=== PATIENT | female | born 1945 | race Caucasian/White ===

== ENCOUNTER 2024-11-28 12:18 | Emergency (ER) | payer MEDICARE, SELFPAY ==
--- OUTSIDE RECORDS SUMMARY | 2024-11-28 12:24 | XMS_ITS | Referral Summary ---
Author Organization [facility] Address [address] [place] [id number] Care Team Providers Care Real Estate Loan Officer Name Role Phone Samm Avalos OD Unavailable Caty Wilson Primary Care Provider [phone] Allergies Active Allergy Reactions Criticality Noted Date Comments Penicillins HIVES 11/30/2020 Medications Medication Sig Dispensed Refills Start Date End Date Status losartan (COZAAR) 25 MG tablet Take 25 mg by mouth daily. Active simvastatin (ZOCOR) 20 MG tablet Take 20 mg by mouth nightly. Active Phenazopyrid-Cranbry- C-Probiot (AZO URINARY TRACT SUPPORT PO) Take by mouth daily. Active aspirin 81 MG EC tablet Take 81 mg by mouth daily. 06/23/2020 Active metFORMIN (GLUCOPHAGE) 500 MG tablet Take 1,000 mg by mouth 2 times daily (with meals). Active METOPROLOL-HYDROCHLOR OTHIAZIDE PO Take by mouth daily. Active Multiple Vitamins-Minerals (PreserVision AREDS 2) Cap Take 2 capsules by mouth. Active Cinnamon 500 MG Cap Take 2 capsules twice a day by oral route. Active olopatadine (PATANOL) 0.1 % ophthalmic solution 1 drop daily. Active Active Problems No known active problems Immunizations Name Administration Dates Next Due COVID Unspecified Formulation 05/23/2021, 021,09/08/2020 Zostavax (Zoster Shingles) 09/12/2016 Social History Tobacco Use Types Packs/Day Years Used Date Smoking Tobacco: Never Smokeless Tobacco: Never Alcohol Use Standard Drinks/Week Comments Yes 7 (1 standard drink = 0.6 oz pur e alcohol) 1 drink a day Inadequate Housing Answer Date Recorded Social Determinants: Housing (Overall Score Help er) 0 01/15/2023 Sex and Gender Information Value Date Recorded Sex Assigned at Not on file Gender Identity Not on file Sexual Orientation Not on file Job Start Date Occupation Industry Not on file Not on file Not on file Last Filed Vital Signs Vital Sign Reading Time Taken Comments Blood Pressure 148/70 12/14/2020 10:56 AM CDT Pulse 71 12/14/2020 10:56 AM CDT Temperature 36.7 C (98.1 F) 12/14/2020 10:48 AM CDT Respiratory Rate 16 12/14/2020 10:5 6 AM CDT Oxygen Saturation 98% 12/14/2020 10: 56 AM CDT Inhaled Oxygen Concentration - - Weight 81.5 kg (179 lb 10.8 oz) 021 10:20 AM CDT Height 165.1 cm (5' 5 ) 12/14/2020 10:2 0 AM CDT Body Mass Index 29.9 12/14/2020 10:20 AM CDT Functional Status Functional Status Response Date of Assess ment RETIRED Are you deaf or do y ou have serious difficulty hearing? No 12/14/2020 RETIRED Are you blind or do you have serious difficulty seeing, even when wearing glasses? No 12/14/2020 Plan of Treatment Not on file Medical Devices Implanted Type Area Baggage Agent Supervisor Device Identifier Shelf Expiration Date Model / Serial / Lot Lens Iol Tecnis Protec +22 D C Hpt Bcnvx 1 Pc Ant - [id number] Implanted:Qty: 1 on 12/07/2020 by Emdundo Hylton MD at [facility] Lens Right: Eye [employer] . [id number] 08/07/2024 [id number] / [id number] / Description:Implant package intact prior to opening. Received at ambient temperature. Lens Iol Tecnis Protec +22 D C Hpt Bcnvx 1 Pc Ant - [id number] Implanted:Qty: 1 on 12/14/2020 by Edmundo Hylton MD at [facility] Lens Left: Eye [employer] . [id number] 09/25/2024 [id number] / [id number] / Description:Implant package intact prior to opening. Received at ambient temperature. Procedures Procedure Name Priority Date/Time Associated Diagnosis Comments EYE EXAM DILATED Routine 07/06/2020 from Last 3 Months or Most Recently Relevant to Health Maintenance Results * EYE EXAM DILATED (07/06/2020) Retinopathy Present Yes Outside Provider SCANS from Last 3 Months or Most Recently Relevant to Health Maintenance Care Teams Real Estate Loan Officer Relationship Specialty Start Date End Date Caty Wilson APNP [address] [place] [address] PCP - General Nurse Practitioner 12/05/20 Samm Avalos OD [address] [place] [address] Referring Provider Optometry 07/11/20
--- OUTSIDE RECORDS SUMMARY | 2024-11-28 12:24 | XMS_ITS | Clinical Summary ---
Author Organization [facility] Address [address] [place] [id number] Care Team Providers Care Payroll And Benefits Manager Name Role Phone Samm Avalos OD Unavailable Caty Wilson Primary Care Provider [phone] Allergies Active Allergy Reactions Criticality Noted Date [...] Formulation 05/23/2021, 021,09/08/2020 Zostavax (Zoster Shingles) 09/12/2016 Surgical History Surgery Date Site/Laterality Comments HYSTERECTOMY HYSTEROSCOPY CATARACT EXTRACTION W/ INTRA OCULAR LENS IMPLANT 08/26/2020 - 08/25/2021 Bilateral Medical History Medical History Date Comments Essential (primary) hypertension High cholesterol Urinary tract infection Arthritis Diabetes mellitus (CMD) checks b lood sugars daily Chronic pain Cataract Family History Medical History Relation Comments Cancer Father Heart disease Father Macular degeneration Mother Stroke Mother Relation Status Comments Father Mother Social History Tobacco Use Types Packs/Day Years [...] file Not on file Not on file Obstetrics History Para Term AB IAB SAB Ectopic Molar Multiple Living Live Births 3 2 2 1 1 Date Outcome GA Total Labor Labor/2nd/3rd Weight Sex Type Anes PTL Jacquelin A1 A5 Name Clin Term Term SAB Last Filed Vital Signs Vital Sign Reading [...] Mass Index 29.9 12/14/2020 10:20 AM CDT Plan of Treatment Health Maintenance Due Date Last Done Comments Depression Screening 1957 Diabetes Foot Exam 12/26/1965 DTaP/Tdap/Td Vaccine (1 - Tdap) 12/26/1966 Pneumococcal Vaccine 50+ (1 of 1 - PCV) 12/26/1997 Hepatitis C Screening 12/26/1998 Shingles Vaccine (2 of 3) 11/07/2016 09/12/2016 Diabetes A1C 09/06/2022 03/06/2022 Respiratory Syncytial Virus (RSV) Vaccine 60+ (1 - 1-dose 75+ series) 12/26/2022 GFR 03/06/2023 03/06/2022 Microalbumin Ratio 03/06/2023 03/06/2022 COVID-19 Vaccine ( season) 2024 05/23/2021, 09/29/2020, 09/29/2020, Additional history exists Influenza Vaccine (#1) 2024 Diabetes Eye Exam 05/07/2024 05/07/2023, , 07/06/2020 Medicare Advantage- Medicare Wellness Visit 08/26/2024 Osteoporosis Screening Completed 09/13/2021 Breast Cancer Screening Discontinued 12/13/19, 09/19/2020, 09/01/2019, Additional history exists Cologuard Discontinued 04/24/2022 Colorectal Cancer Screening Discontinued CT Colonography Discontinued Colonoscopy Discontinued Fecal Occult Blood Discontinued HPV Vaccine Aged Out No longer eligi ble based on patient's age to complete this topic Hepatitis A Vaccine Aged Out No longe r eligible based on patient's age to complete this topic Hepatitis B Vaccine (For Physician/APC Discussion) Aged Out No longer elig ible based on patient's age to complete this topic Meningococcal Serogroup B Vaccine Aged Out No longer eligible based on patient's age to complete this topic Meningococcal Vaccine Aged Out No crys alejandro eligible based on patient's age to complete this topic Sigmoidoscopy Discontinued Medical Devices Implanted Type Area Mother Baby Rn Device Identifier Shelf Expiration Date Model / Serial / Lot Lens Iol Tecnis Protec +22 D C Hpt Bcnvx 1 Pc Ant - [id number] Implanted:Qty: 1 on 12/07/2020 by Edmundo Hylton MD at [facility] Lens Right: Eye [employer] . [id number] 08/07/2024 [id number] / [id number] / Description:Implant package intact prior to opening. Received at ambient temperature. Lens Iol Tecnis Protec +22 D C Hpt Bcnvx 1 Pc Ant - [id number] Implanted:Qty: 1 on 12/14/2020 by Edmundo Hylton MD at [facility] Lens Left: Eye [employer] . [id number] 09/25/2024 [id number] / [id number] / Description:Implant package intact prior to opening. Received at ambient temperature. Procedures Procedure Name Priority Date/Time Associated Diagnosis Comments EYE EXAM DILATED Routine 07/06/2020 from Last 3 Months or Most Recently Relevant to Health Maintenance Results * EYE EXAM DILATED (07/06/2020) Retinopathy Present Yes Outside Provider SCANS from Last 3 Months or Most Recently Relevant to Health Maintenance Care Teams Payroll And Benefits Manager Relationship Specialty Start Date End Date Caty Wilson APNP [address] [place] [place] [id number] PCP - General Nurse Practitioner 12/05/20 Samm Avalos OD [address] [place] [address] Referring Provider Optometry 07/11/20
--- OUTSIDE RECORDS SUMMARY | 2024-11-28 12:24 | XMS_ITS | Data Portability ---
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 Following this, she has a high degree AV block and Afib. Angela was found to have bilateral PEs and was started on Eliquis. She now has a PPM in place. She is 99% paced. Angela was having swelling in her LEs that is improved on her new medications. She was seen by Dr. Rojo to discuss right lead revision of her PPM due to severe tricuspid regurgitation. This is scheduled for next week on Saturday. Dr. Rojo also recommended once lead revision is complete, to consider DCCV for 100% Afib burden. Angela is euvolemic on exam despite her recent BNP being elevated. She will have a new lab drawn today. She will switch her metolazone to prn for weight gain/edema. I anticipate that her medication dosages may change depending on the results of her lead revision next week. Angela is overall feeling much better and able to be more active. They plan to head to [place] for a few months following the lead revision. She will follow-up when they get back. TTE (04/09/24) 1) Paradoxical septal motion. LVEF 45-50%. 2) Pacing lead in the Right Heart cavities. 3) Atria are free of echodense mass. 4) Normal Aortic and pulmonic Valves. 5) Moderate Mitral Regurgitation. 6) SEVERE TRICUSPID REGURGITATION. 7) Normal estimated RVSP/PASP. 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 Following this, she has a high degree AV block and Afib. Anegla was found to have bilateral PEs and was started on Eliquis. She had a PPM in place that caused severe tricuspid regurgitation. Her PPM was revised by Dr. Rojo on 08/05/24. Since then, she has been feeling much better. She lost all of the water weight, down 45 pounds, and she is able to do her normal activity again. She is in atrial fibrillation 100% of the time and there is discussion by Dr. Rojo of whether to perform a DCCV to attempt to get her out of Afib. She is feeling good right now and is tolerating her medications. Angela is euvolemic on exam and her BP is at goal. She is doing well on her current medications and was encouraged to increase her walking. We discussed a possible DCCV in the future. As of now, she is feeling good and is rate controlled. She will maintain her current medications and meet with Dr. Recio in November at her next PPM check to see if a DCCV should be performed. Should she have any lightheadedness or dizziness, we may need to adjust her Bumex dosing. She was advised to watch her weight daily and follow-up sooner if needed. TTE (04/09/24) 1) Paradoxical septal motion. LVEF 45-50%. 2) Pacing lead in the Right Heart cavities. 3) Atria are free of echodense mass. 4) Normal Aortic and pulmonic Valves. 5) Moderate Mitral Regurgitation. 6) SEVERE TRICUSPID REGURGITATION. 7) Normal estimated RVSP/PASP. 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 mitral valve A1c 8.3 (05/29/24) Lipid panel (05/29/24) Total 124, TG 129, HDL 64, LDL 34 [email or web address] Not available 08/25/2024 11:57:06 Plan of Treatment Reminders Order Date Submit Date Provider Last Modified By Organization Details Last Modified Time Details Appointments IN PERSON DEVICE 2024 10:15A M Device Visit Not available Not available Not available FOLLOW UP 30 2024 10:30A M Triston Recio MD Not available Not available Not available MEDICARE ANNUAL WELLNESS 2024 10:30A M David Jaimes MD Not available Not available Not available Lab glycohem oglobin, total, blood 2024 025 [facility], [address], [place], [address], 09/02/2024 12:28:07 CMP, serum or plasma 2024 025 [facility], [address], [place], [address], 09/02/2024 12:28:07 BNP (B-type natriure tic peptide) , serum or plasma 2023 024 [facility], [address], [place], [address], 07/28/2024 12:49:33 Referral dermatol ogist referral 2024 025 [facility] [place], [address], [place], [address], 09/07/2024 21:58:58 Procedures None recorded . Surgeries None recorded . Imaging None recorded . Medication Orders glipizid e 5 mg tablet 2024 025 [facility], [address], [address], [place], [place], [phone], 09/02/2024 12:28:09 Patient TargetsNo targets recorded. Patient Instructions Encounter Date Encounter Id Patient Instructions Last Modified By Organization Details Last Modified Time 09/02/2024 [id number] diabetic eye exam* - please send most up to date DM eye exam [email or web address] Not available 11/02/2024 08:33:13 Reason for Referral Asparagus Cutter Referral for A ctinic keratosis Lesion on scalp concerning for actinic keratosis. Referring Physician: David Jaimes, Family Medicine, Encounter Date: 09/02/2024 Results Created Date Observation Date Name Description Value Unit Range Abnormal Flag Note LastModifiedBy Organization Detail LastModifiedTime 07/21/20 24 07/21/2024 COMPR EHENS ANDRIY METAB OLIC PANEL glucose 280 mg/dL 74-106 high The Ameri can [employer] mad[employer] iatio n recom mends a refer ence range of 70-10 0 mg/dL for fasti ng blood gluco se. Not Available [facility] [address], [place], [address], 07/21/2024 11:35:02 07/21/20 24 07/21/2024 COMPR EHENS ANDRIY METAB OLIC PANEL BUN 27 mg/dL 7-17 high Not Available [facility] [address], [place], [address], 07/21/2024 11:35:02 07/21/20 24 07/21/2024 COMPR EHENS ANDRIY METAB OLIC PANEL creatinine 1.30 mg/dL 0.52-1 .04 high Not Available [facility] [address], [place], [address], 07/21/2024 11:35:02 07/21/20 24 07/21/2024 COMPR EHENS ANDRIY METAB OLIC PANEL estimated GFR 40 mL/mi n/1.7 3_m2 61-166 low Estim ated GFR is calcu lated accor ding to NKDEP recom menda tions using the MDRD equat ion. Resul ts are less accur ate for perso ns with dilip l or mildl y impai red kidne y funct ion (resu lts > 60 mL/mi n/1.7 3 m2). Not Available [facility] [address], [place], [address], 07/21/2024 11:35:02 07/21/20 24 07/21/2024 COMPR EHENS ANDRIY METAB OLIC PANEL BUN / creatinine ratio 21 7-25 normal Not Available [facility] [address], [place], [address], 07/21/2024 11:35:02 07/21/20 24 07/21/2024 COMPR EHENS ANDRIY METAB OLIC PANEL total bilirubin 0.8 mg/dL 0.2-1. 3 normal Not Available [facility] [address], [place], [address], 07/21/2024 11:35:02 07/21/20 24 07/21/2024 COMPR EHENS ANDRIY METAB OLIC PANEL total protein 7.5 g/dL 6.1-8. 5 normal Not Available [facility] [address], [place], [address], 07/21/2024 11:35:02 07/21/20 24 07/21/2024 COMPR EHENS ANDRIY METAB OLIC PANEL albumin 4.5 g/dL 3.5-5. 0 normal Not Available [facility] [address], [place], [address], 07/21/2024 11:35:02 07/21/20 24 07/21/2024 COMPR EHENS ANDRIY METAB OLIC PANEL Na 136 mmol/ L 137-14 5 low Not Available [facility] [address] [place], [address], 07/21/2024 11:35:02 07/21/20 24 07/21/2024 COMPR EHENS ANDRIY METAB OLIC PANEL K 3.9 mmol/ L 3.5-5. 1 normal Not Available [facility] [address] [place], [address], 07/21/2024 11:35:02 07/21/2007/21/2024 COMPR EHENS ANDRIY METAB OLIC PANEL chloride 96 mmol/ L 98-107 low Not Available [facility] [address] [place], [address], 07/21/2024 11:35:02 07/21/20 24 07/21/2024 COMPR EHENS ANDRIY METAB OLIC PANEL CO2 31 mmol/ L 22-30 high Not Available [facility] [address] [place], [address], 07/21/2024 11:35:02 07/21/20 24 07/21/2024 COMPR EHENS ANDRIY METAB OLIC PANEL anion gap 12.9 mmol/ L 2.0-16 .0 normal Not Available [facility] [address] [place], [address], 07/21/2024 11:35:02 07/21/20 24 07/21/2024 COMPR EHENS ANDRIY METAB OLIC PANEL calcium 9.8 mg/dL 8.4-10 .2 normal Not Available [facility] [address] [place], [address], 07/21/2024 11:35:02 07/21/20 24 07/21/2024 COMPR EHENS ANDRIY METAB OLIC PANEL ALT 17 U/L 4-35 normal Ortho Clini luz Diagn ostic s has impro zulema the low end sensi tivit y and preci raissa in ALT's . Updat ed Refer ence Range s begin ing 09/29 Male 4-50 U/L Femal e 4-35 U/L Not Available [facility] [address], [place], [address], 07/21/2024 11:35:02 07/21/20 24 07/21/2024 COMPR EHENS ANDRIY METAB OLIC PANEL AST 25 U/L 14-41 normal Not Available [facility] [address], [place], [address], 07/21/2024 11:35:02 07/21/20 24 07/21/2024 COMPR EHENS ANDRIY METAB OLIC PANEL alkaline phosphatase 60 U/L 38-165 normal Not Available [facility] [address], [place], [address], 07/21/2024 11:35:02 07/28/20 24 07/28/2024 B-TYP E NATRI URETI C PEPTI DE nt pro-BNP II 6260.0 pg/mL 0.0-29 6.0 high On 2022 the labor atory will be eduardo ing testi ng reage nts for ntBNP . The new metho dolog y has been valid ated to the ICON age-d epend ent cutof fs for impro zulema speci ficit y and elimi nates bioti n inter feren ce. Emerg ency Depar tment Setti ngs VITRO S NT-pr oBNP II Test Resul ts (pg/m L) Age Group (Year s) Inter preta tion of Resul ts <300 All Negat andriy: Heart Failu re Unlik deana 300 to 450 22-49 [place]: Resul t Indet ermin ate - Consi rivka other cause s of NT-pr oBNP eleva tion >299 to <900 50-74 >299 to <1800 >74 >449 22-49 Posit andriy:H eart Failu re Likel y >899 50-74 >1799 >75 Outpa tient Setti ngs VITRO S NT-pr oBNP II Test Resul ts (pg/m L) Age Group Inter preta tion of Resul ts <125 All Negat andriy: Heart Failu re Unlik deana >124 All Consi rivka Heart Failu re as well as other cause s of NT-pr oBNP eleva tion. Not Available [facility] [address], [place], [address], 07/28/2024 12:49:33 08/31/1908/31/2024 HEMOG LOBIN A1C hemoglobin A1C 7.7 % 4.7-6. 4 high Not Available [facility] [address], [place], [address], 08/31/2024 09:54:26 08/31/19 25 08/31/2024 HEMOG LOBIN A1C estimated average glucose 174 mg/dL 74-106 high The Ameri can [employer]abe mad[employer] iatio n 2009 Stand ards recom mends repor ting the Estim ated [place] ge Gluco se in conju nctio n with a Hemog lobin A1c. The Ortho Clini luz Diagn ostic Hemog lobin A1c metho d is an immun oturb idime tric metho d, certi fied by the NGSP and stand ardiz ed to the DCCT refer ence assay . Not Available [facility] [address], [place], [address], 08/31/2024 09:54:26 08/31/19 25 08/31/2024 MICRO ALBUM IN, URINE microalbumin 5.9 mg/dL 0.0-29 .0 normal Not Available [facility] [address], [place], [address], 08/31/2024 10:17:58 08/31/19 25 08/31/2024 MICRO ALBUM IN, URINE microalbumin / creatinine ratio 51 mg/g 0-29 high Micro album in Creat inine Ratio Micro album inuri a 30 - 300 mg/g Clini luz album inuri a >300 mg/g Not Available [facility] [address], [place], [address], 08/31/2024 10:17:58 08/31/19 25 08/31/2024 MICRO ALBUM IN, URINE creatinine, urine 114.6 mg/dL Not Available [facility] [address], [place], [address], 08/31/2024 10:17:58 Result Notes None recorded. Problems Name Problem SNOMED Code Status Onset Date Resolution Date Notes Provider Name and Address Organization Details Recorded Time Essential hypertens ion 95831258 Active ANASTACIA Jara, RN [address], [place], [address], [facility] 3 12:50:41 Hyperchol esterolem ia 82373547 Active ANASTACIA Jara, RN [address], [place], [address], [facility] 3 12:51:01 Type 2 diabetes mellitus 94798300 Active ANASTACIA Jara, RN [address], [place], [address], [facility] 3 12:51:22 Chronic back pain 527223865 Active ANASTACIA Jara, RN [address], [place], [address], [facility] 3 11:16:26 Hyperlipi demia 52333361 Active 2023 Parveen Fam DO [address], [place], [address], [facility] 4 14:44:39 Pigmented skin lesion of uncertain nature 684513842 Active 2023 Christopher Rogalla, DO [address], [place], [address], [facility] 14:46:10 Long-term current use of anticoagu lant 744587157 Active 2023 Parveen Fam, DO [address], [place], [address], [facility] 22:32:46 History of atrial myxoma 767470670864 104 Active 2023 Lucianopreethi Fam, DO [address], [place], [address], [facility] 22:33:43 Atrial fibrillat ion 85670703 Active 2023 Parveen Allenwandytonio, DO [address], [place], [address], [facility] 22:33:45 Complete atriovent ricular block 03078255 Active 2023 Parveen Sarwat, DO [address], [place], [address], [facility] 22:33:46 Cardiac pacemaker in situ 334406728 Active 2023 Parveen Allenwandytonio, DO [address], [place], [address], [facility] 22:33:47 Acute pulmonary embolism 750331155 Active 2023 Parveen Sarwat, DO [address], [place], [address], [facility] 22:33:49 Deep venous thrombosi s of lower extremity 798444609 Active 2023 Parveen Schwartztonio, DO [address], [place], [address], [facility] 22:33:50 Atrial myxoma 767036044 Active 2023 STEFFI Dorsey [address], [place], [address], [facility] 4 14:04:42 Type 2 diabetes mellitus without complicat ion 675465525 Active 2023 STEFFI Dorsey [address], [place], [address], [facility] 4 14:05:21 Dyspnea on exertion 55993044 Active 2023 STEFFI Dorsey [address], [place], [address], [facility] 4 15:19:43 Edema of lower extremity 024851213 Active 2023 STEFFI Dorsey [address], [place], [address], [facility] 4 15:29:49 Chronic diastolic heart failure 283116487 Active 2023 David Jaimes MD [address], [place], [address], [facility] 4 11:58:29 Acute on chronic diastolic heart failure 282031498 Active 2023 David Jaimes MD [address], [place], [address], [facility] 4 15:26:58 Ascites 819015036 Active 2023 STEFFI Dorsey [address], [place], [address], [facility] 4 13:50:32 Nonischem ic congestiv e cardiomyo nayeli 758735138011 Active 2023 STEFFI Dorsey [address], [place], [address], [facility] 4 15:58:04 Chronic kidney disease stage 3B 186147150 Active 2023 David Jaimes MD [address], [place], [address], [facility] 4 11:58:21 Dysuria 88632376 Active 2023 David Jaimes MD [address], [place], [address], [facility] 4 14:58:55 Acute cystitis 22083956 Active 2023 David Jaimes MD [address], [place], [address], [facility] 00:48:26 Actinic keratosis 545469999 Active 2024 David Jaimes MD [address], [place], [address], [facility] 5 12:25:18 Notes:Some problems listed i n Document: #[id number] could not be added to this patient's chart. Please review this document and add these problems to the patient's chart manually as needed. Problem Notes None recorded. Procedures Surgical History Date Name Laterality Status Provider Name and Address Organization Details Recorded Time 08/13/20 Pacemaker Check completed [facility] 08/14/2024 09:46:18 08/05/20 24 replacement of electronic heart device, pulse generator completed ROSELIA DAVIDSON [facility] 08/25/2024 11:03:01 08/04/20 24 Pacemaker Check completed [facility] 08/04/2024 12:05:06 05/04/20 24 Most Recent Mammogram completed [place] Moore [facility] 06/01/2024 11:38:54 04/28/20 24 Pacemaker Check completed [facility] 04/28/2024 15:29:32 01/16/20 24 Pacemaker Check completed [facility] 01/16/2024 15:24:33 10/23/19 24 cardiac pacemaker procedure completed Vivian [facility] 01/13/2024 17:11:41 10/17/19 24 excision of left atrial myxoma completed Vivian [facility] 01/13/2024 17:03:48 Total hysterectomy completed [facility] 09/05/2022 10:05:29 hysteroscopy completed [facility] 09/05/2022 10:06:33 extraction of cataract completed [facility] 09/05/2022 10:06:52 Imaging Results None recorded. Procedure Notes None recorded. Medical Equipment Implant MILIND Issuing Agency Serial Number Lot Number Status Provider Name and Address Organization Details Recorded Time Medtronic Dual Chamber Pacemaker FDA Y [facility] 01/13/2024 17:12:10 Allergies Allergen ID Allergen Name Allergen Category Reaction Reaction Severity Criticality Documentation Date Start Date Code Code System Note Provider Name and Address Organization Details Recorded Time 394859 Product containin g penicilli n (product) medicatio n hives moderate low 09/05/20222022 58353 8001 SNOMED [facility] 4 11:30:14 334849 adhesive tape environme nt,medica tion rash moderate Not available 09/02/2024 05952 UNK [place] Fink her null, [facility] 5 12:05:57 Medications Name Sig Start Date Stop Date Status Note LastModified by Organization Details LastModified Time multivita min tablet Take 2 tablets every day by oral route. active Not Available Not Available No t Available metolazon e 2.5 mg tablet TAKE ONE TABLET BY MOUTH ONCE WEEKLY 08/25 completed Not Available Not Available Not Available metformin 500 mg tablet TAKE 2 TABLETS BY MOUTH TWICE DAILY 2023 active Not Available Not Available Not Avai lable bumetanid e 2 mg tablet Take 1 tablet twice a day by oral route. active Not Available Not Available No t Available metoprolo l succinate ER 50 mg tablet,ex tended release 24 hr Take 1 tablet every day by oral route. 03/07 completed Not Available Not Available Not Available amlodipin e 5 mg tablet Take 1 tablet every day by oral route. 03/10 completed Not Available Not Available Not Available metoprolo l tartrate 50 mg-hydroc hlorothia zide 25 mg tablet Take 1 tablet every day by oral route. 01/08 completed Not Available Not Available Not Available Macrobid 100 mg capsule Take 1 capsule every 12 hours by oral route for 5 days. 06/25 completed Changed med to Cipro Not Available Not Available Not Available simvastat in 20 mg tablet TAKE 1 TABLET BY MOUTH AT BEDTIME 2023 active Not Available Not Available Not Avai lable Cipro 500 mg tablet Take 1 tablet every 12 hours by oral route for 5 days. 07/28 completed Not Available Not Available Not Available nitrofura ntoin macrocrys ziyad 100 mg capsule Take 1 capsule twice a day by oral route for 7 days. 04/01 completed Not Available Not Available Not Available losartan 25 mg tablet Take 1 tablet every day by oral route. 04/13 completed Not Available Not Available Not Available bumetanid e 1 mg tablet Take 1 tablet every day by oral route for 30 days. 04/13 completed Not Available Not Available Not Available hydrochlo rothiazid e 25 mg tablet Take 1 tablet every day by oral route. 03/07 completed Not Available Not Available Not Available digoxin 125 mcg (0.125 mg) tablet 1 po q day 2024 active Not Available Not Available Not Avai lable furosemid e 20 mg tablet Take 2 tablets every day by oral route in the morning for 90 days. 03/12 completed Not Available Not Available Not Available bumetanid e 0.25 mg/mL injection solution Take 2 mg by injectio n route. 04/13 completed Not Available Not Available Not Available ondansetr on 4 mg disintegr ating tablet Place 2 tablets on the tongue daily as needed for nausea 08/25 completed Not Available Not Available Not Available glipizide 5 mg tablet Take 1 tablet twice a day by oral route for 90 days. 2024 active Not Available Not Available Not Avai lable ezetimibe 10 mg tablet Take 1 tablet every day by oral route. 2023 active Not Available Not Available Not Avai lable Cinnamon 500 mg capsule Take 2 capsules twice a day by oral route. 01/08 completed Not Available Not Available Not Available Vitamin D3 2000 IU 07/28 completed Not Available Not Available Not Available multivita min one daily active Not Available Not Available No t Available PreserVis ion AREDS Takes 1 capsule by mouth twice daily. active Not Available Not Available No t Available nebivolol 10 mg tablet Take 1 tablet every day by oral route. 2023 active Not Available Not Available Not Avai lable Vitamin D3 50 mcg (2,000 unit) capsule Take 1 capsule every day by oral route. active Not Available Not Available No t Available Eliquis 5 mg tablet 1 tab bid 2023 active Not Available Not Available Not Avai lable Farxiga 10 mg tablet Take 1 tablet every day by oral route. 01/13 completed Not Available Not Available Not Available Entresto 24 mg-26 mg tablet Take 0.5 tablet twice a day by oral route 2023 active Not Available Not Available Not Avai lable aspirin 81 mg capsule Take 1 capsule every day by oral route. 01/08 completed Not Available Not Available Not Available Vitals Date Recorded Body height Body mass index (BMI) Body weight Respiratory rate Pain severity - 0-10 verbal numeric rating [Score] - Reported Heart rate Systolic blood pressure Diastolic blood pressure Provider Name and Address Organization Details Last Updated DateTime 4 165.1 cm 21.8 kg/m2 80702.8 8 g 16 /min 0 64 /min 110 mm[Hg] 66 mm[Hg] ROSELIA DAVIDSON [facility] 4 11:33:24 Date Recorded Body height Body mass index (BMI) Body weight Respiratory rate Pain severity - 0-10 verbal numeric rating [Score] - Reported Heart rate Systolic blood pressure Diastolic blood pressure Provider Name and Address Organization Details Last Updated DateTime 4 165.1 cm 21.7 kg/m2 60358.1 6 g 16 /min 0 64 /min 112 mm[Hg] 58 mm[Hg] ROSELIA SANCHEZLUDWIN [facility] 4 11:04:34 Date Recorded Body height Body mass index (BMI) Body weight Respiratory rate Body temperature Heart rate Systolic blood pressure Diastolic blood pressure Provider Name and Address Organization Details Last Updated DateTime 5 165.1 cm 21.5 kg/m2 66465.2 2 g 16 /min 97.6 [degF] 71 /min 110 mm[Hg] 60 mm[Hg] [place] Pottschana her [facility] 5 12:03:38 Social History Question Answer Notes LastModified by Organizat ion Details LastModified Time Tobacco Smoking Status Never Smoker Areli Hernan blum, [facility] 09/05/2022 10:07:52 Do You Have An Advance Directive? Yes [email or web address] Information not available 09/18/2022 Is Your Home Air Conditioned? Yes Information not available 09/05/2022 What Is Your Level Of Alcohol Consumption? None [email or web address] Information not available 04/13/2024 Is Blood Transfusion Acceptable In An Emergency? Yes [email or web address] Information not available 09/18/2022 What Is Your Level Of Caffeine Consumption? Occasional [email or web address] Information not available 04/13/2024 Are You A Caregiver? No Information not available 09/05/2022 What Is Your Code Status? Full Code [email or web address] Information not available 09/18/2022 Are You Currently Employed? No [email or web address] Information not available 09/18/2022 What Is The Highest Grade Or Level Of School You Have Completed Or The Highest Degree You Have Received? [id number] [email or web address] Information not available 09/18/2022 Have There Been Any Changes To Your Family Or Social Situation? No Information not available 04/01/2024 Where Do You Live? [email or web address] Information not available 09/05/2022 PCMH Education Provided? Yes Information not available 09/05/2022 PCMH Brochure Provided? Yes [email or web address] Information not available 01/09/2024 Patient Seen Anywhere Outside Of Office? Bellin Device Check/ PPM [email or web address] Information not available 08/25/2024 History Of Falling No Information not available 09/05/2022 Secondary Diagnosis No Information not available 09/05/2022 Intravenous Therapy/Saline Lock No Information not available 09/05/2022 Mental Status Oriented To Own Ability Information not available 09/05/2022 Over The Last 2 Weeks, How Often Have You Had Little Interest Or Pleasure Doing Things? 0 - Not At All Information not available 09/05/2022 Over The Last 2 Weeks, How Often Have You Brielle Down, Depressed Or Hopeless? 0 - Not At All Information not available 09/05/2022 Ambulatory Aid None Informat ion not available 09/05/2022 Gait Normal [email or web address] Information not available 09/05/2022 Did You Experience A Decreased Appetite Over The Last Month? Yes Makes Herself Eat Information not available 06/01/2024 Did You Use Supplemental Drinks Or Tube Feeding Over The Last Month? No Information not available 09/05/2022 Did You Lose Weight Unintentionally ? No Information not available 09/05/[address] [facility] Brochure Was Provided 04/01/2024 Information not available 04/01/2024 Do You Have A Medical Power Of Filterer? Yes [email or web address] Information not available 09/18/2022 What Was The Date Of Your Most Recent Tobacco Screening? 09/02/2024 Information not available 09/02/2024 Do You Have An Out Of Hospital DNR? No [email or web address] Information not available 09/18/2022 Do You Have A Patient Advocate? No Information not available 09/18/2022 Have You Ever Been Counseled For Unhealthy Alcohol Use? No [email or web address] Information not available 09/18/2022 Do You Have Any Pets? Yes 1 Dog Information not available 09/05/2022 What Is Your Relationship Status? Information not available 09/05/2022 Do You Have Smoke And Carbon Monoxide Detectors In Your Home? Yes Information not available 09/05/2022 Are You Passively Exposed To Smoke? No [email or web address] Information not available 04/13/2024 Are There Any Smokers In Your House? No Information not available 09/05/2022 Do You Use Any Illicit Or Recreational Drugs? No Information not available 09/05/2022 Has Tobacco Cessation Counseling Been Provided? No Information not available 09/25/2023 Have You Recently Traveled Abroad? No [email or web address] Information not available 04/03/2024 Do You Have Any Dietary Restrictions? No Information not available 09/18/2022 Do You Or Have You Ever Used Any Other Forms Of Tobacco Or Nicotine? No Information not available 09/05/2022 Sex: Female Functional Status Question Answer Note LastModified by Organization D etails LastModified Time What is your exercise level? None [email or web address] Information not available 09/18/2022 Mental Status None recorded. Family History Relationship Description Onset Age of this Age Resolved Age Notes LastModified by Organization Details LastModified Time Father Malignant neoplasm of urinary bladder [email or web address] Not available 06/2023 10:05:57 Father Malignant tumor of lung [email or web address] Not available 06/2023 10:06:06 Mother Family history of breast cancer [email or web address] Not available 06/2023 10:06:13 Medical History Condition Response Coronary Artery Disease N Atrial Fibrillation N Hospital Admission Other Than Y Lung Disease N Depression N Kidney Disease/UTI N Arthritis Y High Cholesterol Y Anxiety N Acid Reflux Y Nicotine Dependence N Kidney or Bladder Problems N Diabetes Y Hyperlipidemia Y Operations/Hospitalizations Y Hypertension Y Osteoporosis N Gynecological History Statement/Question Response Current Control Method Menopause Most Recent Mammogram 05/04/2024 Obstetrics History GPAL:G 3 P 2 0 1 2 Type Value Full Term 2 Spontaneous 1 Living 2 Total 3 Immunizations Vaccine Type Date Status Note Provider Nam e and Address Organization Details Recorded Time zoster live 09/12/2016 completed Areli Becerra [facility] 09/04/2022 14:49:56 SARS-COV-2 (COVID-19) vaccine, UNSPECIFIED 09/08/2020 completed Areli Becerra kulwant, [facility] 09/04/2022 14:50:10 SARS-COV-2 (COVID-19) vaccine, UNSPECIFIED 09/29/2020 completed Areli blum, [facility] 09/04/2022 14:50:21 SARS-COV-2 (COVID-19) vaccine, UNSPECIFIED 05/23/2021 completed Areli Becerra kulwant, [facility] 09/04/2022 14:50:30 Past Encounters Encounter ID Performer Location Encounter Start Date Encounter Closed Date Diagnosis/Indication Diagnosis SNOMED-CT Code Diagnosis ICD10 Code Diagnosis Note [id number] Maeve gottleib MD [facility] [address] [place] [address] 09/05/2022 09:52:14 09/05/2022 11:41:37 Type 2 diabetes mellitus without complication 520020608 E11.9 Continue medication s Essential hypertension 77582853 I10 Continue medication s Hyperlipidemia 82403517 E78.5 Continue medication s Influenza vaccination declined 949727418 Z28.21 Screening mammography of bilateral breasts 7420446443 71560 Z12.31 Due 11/2022 [id number] Maeve gottlieb MD [facility], Primary Care [address] [place] [address] 09/18/2022 10:54:19 09/18/2022 14:05:34 Essential hypertension 23480994 I10 takes losartan 25 mg daily and metoprolol 50 mg daily Hypercholesterolemia 136 28270 E78.00 lipid panel done 09/12/22, high triglyceri lópez and HDL; takes simvastati n daily Type 2 horacio betes mellitus 33025822 E11.9 on Metformin 500 mg, 2 tabs twice daily; A1c drawn 09/12/22 at 7.7 with estimated average glucose of 174 Adult heal th examination 059163562 Z00.00 Medicare annual wellness completed today Chronic back pain 191076 002 G89.29 chronic problem, history of injury many years ago, managed with chiropract ic manipulati on Discussion about advance care planning declined 887833329 Z53.20 already has these on file with the hospital system Influenza vaccination declined 738524147 Z28.21 Pneumococc al vaccination declined 203290031 Z28.21 [id number] Maeve gottlieb MD [facility], [facility] [address] [place] [address] 03/07/2023 10:24:43 03/07/2023 11:39:04 Type 2 diabetes mellitus without complication 670908568 E11.9 Continue metformin Hyperlipidemia 08201792 E78.5 Continue simvastati n Essential hypertension 14171321 I10 Continue losartan 25 mg daily and metoprolol 50/HCTZ 25 mg daily [id number] Richar Fam DO [facility], Primary Care [address] [place] [address] 09/10/2023 09:22:59 09/10/2023 10:21:32 Type 2 diabetes mellitus 43277008 E11.65 Chronic problem, not controlled . Hemoglobin A1c exceeding 7%.Plan: Continue metformin 500 mg 2 tablets twice a day Start Farxiga 10 mg once a day Hyperlipidemia 61287551 E78.5 Chronic problem, well-contr olled. Last previous lipid check revealed LDL below 90. This is for secondary prevention in light of type 2 diabetes mellitus with no history of heart attack or stroke.Paras n: Continue simvastati n 25 mg once a day at bedtime Essential hypertension 52608024 I10 Chronic problem, well-contr olled.Plan : Continue losartan 25 mg once a day Continue metoprolol : Hydrochlor othiazide 50: 25 mg once a day Type 2 horacio betes mellitus without complication 342949925 E11.9 Refer to type 2 diabetes mellitus above. Pigmented skin lesion of uncertain nature 937896331 L81.9 Chronic problem, noted on patient's right ureter. Patient states that she has a growth that itches and then falls off. She does have irritation to the right ear as well as some adhesion of the structure of her right ear. She is thought to have potentiall y seborrheic keratosis or actinic keratosis keratosis. Informed patient that she would be best served consulting with a dermatolog ist given the poor blood flow of the ear. She is not thought to be a candidate for topical treatments . She may need a shave biopsy. She declines dermatolog y referral today, stating that she will be in [place] for the winter. When she returns in the spring she would like to undergo an evaluation by dermatolog y here in [place]. 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 Atrial fibrillation 4943 6004 I48.91 Chronic problem, stable.See cardiac pacemaker in situ. 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 Cardiac pa cemaker in situ 177319209 Z95.0 Chronic problem, placed 10/23/2023. Acute pulm onary embolism 735102252 I26.99 See long-term use of anticoagul ant. Deep venou s thrombosis of lower extremity 617286532 I82.409 See long-term use of anticoagul ant. Long-term current use of anticoagulant 353742162 Z79.01 Chronic use of Eliquis for DVT. Not previously on anticoagul ation likely due to pacemaker placement. Considered provoked.C ardiology at outside hospital recommende d 6 months DOAC use.- This would conclude by the end of May4Patiman giron says she was told for life.Defer to cardiology . Essential hypertension 79757780 I10 Chronic problem, well-contr olled. Plan: Continue losartan 25 mg once a day Continue metoprolol : Hydrochlor othiazide 50: 25 mg once a day Type 2 horacio betes mellitus 78790231 E11.65 Chronic problem, not controlled . Hemoglobin A1c exceeding 7% 01/08/2024. Plan: Continue metformin 500 mg 2 tablets twice a day Start Farxiga 10 mg once a day Hyperlipidemia 96404476 E78.5 Chronic problem, well-contr olled. Last previous lipid check revealed LDL below 90. This is for secondary prevention in light of type 2 diabetes mellitus with no history of heart attack or stroke. Plan: Continue simvastati n 25 mg once a day at bedtime [id number] STEFFI Hylton [facility], [facility] [address] [place] [address] 01/14/2024 14:21:20 01/14/2024 15:53:29 Atrial fibrillation 58756561 I48.91 99% burdenEliq uis started Atrial myxoma 446088013 D15.1 Removal surgery 10/24/23 Essential hypertension 85251974 I10 Goal 130/80 or less Type 2 horacio betes mellitus without complication 199120835 E11.9 Start WotkaF7q 7.1Goal A1c 6.0 or less Hyperlipidemia 68659076 E78.5 Goal TG<150Goal HDL>40Goal LDL<100Sta rt ZetiaConti nue statin Complete atrioventricular block 47738156 I44.[address] Cardiac pa cemaker in situ 720490275 Z95.0 Checked in clinic today and set at 70 bpm99% paced Dyspnea on exertion 6084 5006 R06.09 Increase Lasix dosingLabs ordered Edema of l ower extremity 246201716 R60.0 Increase Lasix dosing [id number] Triston Recio MD [facility], [facility] [address] [place] [address] 01/16/2024 14:08:13 01/17/2024 15:44:31 [id number] David Jaimes MD [facility], [facility] [address] [facility] [address] [place] [address] 04/01/2024 12:21:09 04/01/2024 14:09:29 Edema of lower extremity 352127540 R60.0 Screening mammography of bilateral breasts 6032419487 37732 Z12.31 Due for screening; ordered. Acute on c hronic diastolic heart failure 330387175 I50.33 Patient with continued volume overload. Worsening with decrease of bumex from 2 mg to 1 mg. Weight is slowly increasing along with worsening lower extremity swelling. Mild crackles noted in RLL on lung exam. Will increase Bumex from 1 mg to 2 mg until seen by cardiology on 04/03. Advised to start wearing compressio n stockings; donning device discussed. Limit salt intake. continue to monitor weights and maintain log. [id number] STEFFI Hylton [facility] [address] [place] [address] 04/03/2024 13:55:58 04/03/2024 15:16:17 Atrial fibrillation 27115394 I48.91 99% burdenEliq uis started Atrial myxoma 582919104 D15.1 Removal surgery 10/24/23Wor sening edema Essential hypertension 98037427 I10 Goal 130/80 or less Type 2 horacio betes mellitus without complication 801998886 E11.9 Continue CvuxkG6y 7.1Goal A1c 6.0 or less Hyperlipidemia 37323459 E78.5 Goal TG<150Goal HDL>40Goal LDL<100Con tinue statin and Zetia Complete atrioventricular block 82406329 I44.[address] Cardiac pa cemaker in situ 600450782 Z95.0 Checked in clinic today and set at 70 bpm99% paced Dyspnea on exertion 6084 5006 R06.09 Increased Bumex dosingLabs orderedIV Bumex in clinic todayCMP done 03/30 Edema of l ower extremity 339744282 R60.0 Increase Bumex dosing [id number] STEFFI Hylton [facility] [address] [place] [address] 04/13/2024 15:27:14 04/13/2024 16:46:39 Atrial fibrillation 14684487 I48.91 99% burdenEliq uis therapy Complete atrioventricular block 26203354 I44.[address] may require revision of PPM to 2 leads, EP referralPP M setting changed from [address] to [address] Recio Atrial myxoma 525669668 D15.1 Removal surgery 10/24/23Wor sening edema Essential hypertension 26106391 I10 Goal 130/80 or less Type 2 horacio betes mellitus without complication 970053858 E11.9 Continue YtryhL1h 7.1Goal A1c 6.0 or less Hyperlipidemia 98026279 E78.5 Goal TG<150Goal HDL>40Goal LDL<100Con tinue statin and Zetia Cardiac pa cemaker in situ 417777765 Z95.0 PPM setting changed from 70 to [address] Recio99% paced Dyspnea on exertion 6084 5006 R06.09 Bumex 2mg bid, metolazone added,Labs ordered Edema of l ower extremity 713270667 R60.0 Continue Bumex 2mg bid dosingAdd Metolazone Start Entresto 1/2 tab bid, Digoxin,La bs ordered to be done prior to next appt Ascites 762381117 R18.8 right sided HF mediated ascites Nonischemi c congestive cardiomyopathy 9031349983 04 I42.0 PPM lead mediated - EP referralPo ssible PPM revision to 2 lead [id number] STEFFI Hylton [facility] [address] [place] [address] 04/28/2024 09:50:34 04/28/2024 10:54:56 Atrial fibrillation 79966390 I48.91 100% burdenEliq uis therapy Complete atrioventricular block 43111670 I44.[address] may require revision of PPM to 2 leads, EP referralPP M setting changed from [address] Recio Atrial myxoma 283750367 D15.1 Removal surgery 10/24/23 Essential hypertension 85349702 I10 Goal 130/80 or less Type 2 horacio betes mellitus without complication 753530429 E11.9 Continue LeledH8u 7.1Goal A1c 6.0 or less Hyperlipidemia 49082399 E78.5 Goal TG<150Goal HDL>40Goal LDL<100Con tinue statin and Zetia Cardiac pa cemaker in situ 677594393 Z95.0 PPM setting changed from [address] Recio100% paced Dyspnea on exertion 6084 5006 R06.09 Bumex 2mg bid, metolazone added,impr oving Edema of l ower extremity 212441148 R60.0 Continue Bumex 2mg bid dosingAdd Metolazone Continue Entresto 1/2 tab bid, Digoxin,La bs ordered to be done next month Nonischemi c congestive cardiomyopathy 1759467585 04 I42.0 PPM lead mediated - EP referralPo ssible PPM revision to 2 lead [id number] Triston Recio MD [facility], [facility] [address] [place] [address] 04/28/2024 09:50:34 04/28/2024 10:54:56 [id number] David Jaimes MD [facility], [facility] [address] [facility] [address] [place] [address] 06/01/2024 11:22:34 06/01/2024 12:17:57 Chronic kidney disease stage 3B 851926459 N18.32 Known CKD with recent worsening suspected due to diuresis. GFR 37 with Cr 1.40. Will continue to monitor monthly. Chronic di astolic heart failure 886647393 I50.32 Improved swelling from last visit. Down 36 lbs since last seen. Doing well on current medication . monitoring weight which is stable at this time. Continue following cardiology plan for diuresis at this time. Repeat BMP ordered to monitor kidney function. Type 2 horacio betes mellitus 57406732 E11.65 Chronic issue, worsened controlGoa l Hgb A1c <6.0Lat Hgb a1c 8.3Current Medication : Metformin 1000 mg BIDOn ARB/statin DM eye exam: Due, appt scheduled on 06/16DM foot exam: completed today, 06/01/2024, wnl, no neuropathy Plan:- Continue current medication - Discussed adding on another agent, patient hesitant at this time due to multiple medication changes recently- Desires to make lifestyle changes through diet and exercise, repeat Hgb A1c in 3 months- If still elevated at that time open to trying another medication (did not tolerate Farxiga in past due to recurrent UTI) [id number] STEFFI Hylton [facility] [address] [facility] [address] [facility] [address] [place] [address] 07/28/2024 11:25:03 07/28/2024 12:02:38 Atrial fibrillation 22384231 I48.91 100% burdenEliq uis therapy Complete atrioventricular block 00461928 I44.[address] requires revision of PPM to 2 leads, EP planned procedure Atrial myxoma 049373273 D15.1 Removal surgery 10/24/23 Essential hypertension 15978599 I10 Goal 130/80 or less Type 2 horacio betes mellitus without complication 181442930 E11.9 Continue ZetiaGoal A1c 6.0 or less Hyperlipidemia 08740531 E78.5 Goal TG<150Goal HDL>40Goal LDL<100Con tinue statin and Zetia Cardiac pa cemaker in situ 588916349 Z95.0 100% paced Dyspnea on exertion 6084 5006 R06.09 ResolvedBu aniya 2mg bid,metola zone as needed Edema of l ower extremity 046886664 R60.0 Continue Bumex 2mg bid dosingMeto lazone to be used as neededCont inue Entresto 1/2 tab bid, Digoxin,La bs ordered Nonischemi c congestive cardiomyopathy 8409553772 04 I42.0 PPM lead mediated - EP planned procedure for lead revision [id number] Triston Recio MD [facility] [address] [place] [address] 08/04/2024 11:27:57 08/04/2024 16:35:03 [id number] Triston Recio MD [facility] [address] [place] [address] 08/13/2024 16:24:47 08/13/2024 17:30:56 [id number] STEFFI Hylton [facility] [address] [place] [address] 08/25/2024 10:53:02 08/25/2024 11:32:19 Atrial fibrillation 84733425 I48.91 100% burdenEliq uis therapyDr. Rojo discussed possible DCCV in the future, she is currently rate controlled and happyDiscu ss further at next appointmen t Complete atrioventricular block 64390489 I44.2 [address] in [address]Revis ed PPM done br Dr. Rojo on 08/05/24 Atrial myxoma 039486345 D15.1 Removal surgery 10/24/23 Essential hypertension 46712811 I10 Goal 130/80 or less Type 2 horacio betes mellitus without complication 598727488 E11.9 Continue ZetiaGoal A1c 6.0 or lessPt to address with her PCP Hyperlipidemia 98878248 E78.5 Goal TG<150Goal HDL>40Goal LDL<100Con tinue statin and Zetia Cardiac pa cemaker in situ 234990726 Z95.0 100% paced Dyspnea on exertion 6084 5006 R06.09 ResolvedBu aniya 2mg bid,metola zone as neededRevi se as needed based on symptoms Edema of l ower extremity 846371367 R60.0 Currently well managed on medication sContinue Bumex 2mg bid dosingMeto lazone to be used as neededCont inue Entresto 1/2 tab bid, Digoxin, Nonischemi c congestive cardiomyopathy 9703277618 04 I42.0 PPM lead mediated - PPM revision done 08/05/24 [id number] Davdi Jaimes MD [facility], [address] [address] 09/02/2024 11:52:21 09/02/2024 12:33:21 Type 2 diabetes mellitus 41229035 E11.65 Chronic issue, uncontroll edGoal Hgb A1c <7.0Last Hgb a1c 7.7 on 08/31/2024u rrent Medication : Metformin 1000 mg BIDOn ARB/statin DM eye exam: up to date per patient, obtained at [facility] foot exam: up to date, 06/01/2024, wnl, no neuropathy Did not tolerate SLGT2 due to recurrent UTIs Plan:- Start Glipizide 5 mg BID- Continue Metformin 1000 mg BID- Monitoring lab work ordered to be completed prior to next visit Actinic keratosis 049235 007 L57.0 Lesion on scalp concerning for actinic keratosis. Discussed treatment of lesion in office with cryotherap y but due to size of lesion and location prefer patient to see dermatolog y for treatment/ evaluation . Health Concerns Section Related Observation LastModified by Organization Detai ls LastModified Time None Recorded Concern Status LastModified by Organization Details LastModified Time None Recorded Advance Directives Directive Y: Payers Encounter Date Sequence Insurance Name Policy Number Policy Flanagan Covered Member ID Flanagan Member ID Guarantor Name 07/28/2024 1 [facility] (MEDICARE REPLACEMENT/A DVANTAGE - PPO) [id number] Angela L Selmo [id number] Angela Selmo 07/28/2024 1 [facility] (MEDICARE REPLACEMENT/A DVANTAGE - PPO) [id number] Angela L Selmo [id number] Angela Selmo 08/13/2024 1 [facility] (MEDICARE REPLACEMENT/A DVANTAGE - PPO) [id number] Angela L Selmo [id number] Angela Selmo 08/25/2024 1 [facility] (MEDICARE REPLACEMENT/A DVANTAGE - PPO) [id number] Angela Andrade Selmo [id number] Angela Selmo 09/02/2024 1 [facility] (MEDICARE REPLACEMENT/A DVANTAGE - PPO) [id number] Angela Mcnallymo [id number] Angela Sawyer Notes Date Note Type Note Provider Name and Address Organization Details Recorded Time 07/28/2024 text/html Angela is a pleasant 78 year old female who had a left atrial myxoma surgery on 10/17/23. Following this, she has a high degree AV block and Afib. Angela was found to have bilateral PEs and was started on Eliquis. She now has a PPM in place. She is 99% paced. Angela was having swelling in her LEs that is improved on her new medications. She was seen by Dr. Rojo to discuss right lead revision of her PPM due to severe tricuspid regurgitation. This is scheduled for next week on Saturday. Dr. Rojo also recommended once lead revision is complete, to consider DCCV for 100% Afib burden.Angela reports no dizziness, no lightheadedness, no chest pain, no shortness of breath, no palpitations, improved edema, and no headache. STEFFI Dorsey [address] [place], [address], [facility] 07/28/2024 12:13:15 08/25/2024 text/html Angela is a pleasant 78 year old female who had a left atrial myxoma surgery on 10/17/23. Following this, she has a high degree AV block and Afib. Angela was found to have bilateral PEs and was started on Eliquis. She had a PPM in place that caused severe tricuspid regurgitation. Her PPM was revised by Dr. Rojo on 08/05/24. Since then, she has been feeling much better. She lost all of the water weight, down 45 pounds, and she is able to do her normal activity again. She is in atrial fibrillation 100% of the time and there is discussion by Dr. Rojo of whether to perform a DCCV to attempt to get her out of Afib. She is feeling good right now and is tolerating her medications.Angela reports no dizziness, no lightheadedness, no chest pain, no shortness of breath, no palpitations, no edema, and no headache. STEFFI Dorsey [address], [place], [address], [facility] 08/25/2024 11:59:30 09/02/2024 text/html Patient presenti today for diabetic management. She has acute concern of a skin lesion on her scalp. Unsure of how long it has been present or changing in size. No personal history of skin cancer. Does not bleed but does occasionally flake. She has never been seen for this lesion in the past. Hgb A1c was 7.7 on recent lab work. She has no other acute concerns today. Denies any fevers, chills, cough, vision changes, headaches, chest pain, palpitations, shortness of breath, abdominal pain, n,v,d, melena, hematochezia, edema. David Jaimes MD [address], [place], [place], [id number], [facility] 09/02/2024 12:32:54 OBGyn Episode No OBEpisode recorded.
[2024-11-28 12:40] VITALS: BP 150/79; PULSE 48; RESP 22; TEMP 36.2; O2SAT 100
--- NOTE | 2024-11-28 13:12 | ED.GENADULT ---
HPI - General Adult General Chief complaint: Extremity Injury, Lower Stated complaint: fainted, twisted ankle Time Seen by Provider: 11/28/24 12:40 History of Present Illness HPI narrative: 78-year-old female patient presents to [facility] with her after having a syncopal episode in a restaurant. states that he had caught some kind of virus because they have been traveling lately and he is concerned she might have kind of caught a virus. Patient was in the restroom prior to getting checked in when arriving to the urgent care. Patient's assisted her on the toilet and when he went back in she was slumped over on the toilet. Medical staff did a 10 and patient was limp on the toilet with no pulse and cyanotic lips. Patient was lowered to the floor and CPR was started. Patient had about 1 minute of CPR before pulse was regained. Per patient's heat she does have a history of AFib and does have a pacemaker unknown if the pacer also has a defibrillator. EMS was called and patient was sent to [facility] for further evaluation. Related Data Allergies Allergy/AdvReac Type Severity Reaction Status Date / Time Penicillins Allergy Unknown Unknown Verified 11/28/24 12:57 Review of Systems Review of Systems: CONSTITUTIONAL: Denies fever, chills, or sweats. EYES: Denies visual changes, redness, or discharge. ENT: Denies rhinorrhea, congestion, sore throat, or otalgia. CARDIOVASCULAR: Denies chest pain, palpitations, or edema. RESPIRATORY: Denies cough or dyspnea. GASTROINTESTINAL: Denies abdominal pain, nausea, vomiting, or diarrhea. GENITOURINARY: Denies dysuria or hematuria. SKIN: Denies rash or itching. MUSCULOSKELETAL: Denies back pain, joint pain, or myalgia. NEUROLOGIC: Denies headache, numbness, or weakness. Positive syncope PSYCHIATRIC: Denies anxiety or depression. [facility] Past Medical History Medical History (Updated 11/28/24 @ 13:22 by JASON Campa) Pacemaker Afib Exam Narrative: GENERAL: ill-appearing, and patient was slumped over on the toilet on 1st examination. Patient was limp with cyanotic lips. No pulse noted.. HEAD: Normocephalic, atraumatic. EYES: PERRLA and EOMI. ENT: Nares clear, no rhinorrhea or epistaxis. Mucous membranes moist. NECK: Supple. No lymphadenopathy CHEST: Clear to auscultation. No respiratory distress. HEART: Irregular rate and rhythm noted after pulse was regained. No murmur heard. Normal peripheral pulses. ABDOMEN: Soft, nontender, nondistended, normal active bowel sounds. EXTREMITIES: Normal range of motion. No edema. SKIN: Warm, dry, no rash. NEURO after pulse was regained patient was only responsive to painful stimuli. Patient was moving all 4 extremities. Course Course Level of Care: Express Care Visit Vital Signs Vital signs: Vital Signs Temperature 36.2 C L 11/28/24 12:40 Pulse Rate 48 L 11/28/24 12:40 Respiratory Rate 22 H 11/28/24 12:40 Blood Pressure 150/79 H 11/28/24 12:40 Pulse Oximetry 100 11/28/24 12:40 Oxygen Delivery Non-Rebreather Mask 11/28/24 12:40 Oxygen Flow Rate 15 11/28/24 12:40 Temperature 36.2 C L 11/28/24 12:40 Pulse Rate 48 L 11/28/24 12:40 Respiratory Rate 22 H 11/28/24 12:40 Blood Pressure 150/79 H 11/28/24 12:40 Pulse Oximetry 100 11/28/24 12:40 Oxygen Delivery Non-Rebreather Mask 11/28/24 12:40 Oxygen Flow Rate 15 11/28/24 12:40 vital signs reviewed. The patient has been informed that they may have pre-hypertension or Hypertension based on a BP reading in the department. I recommend that the patient call the primary care provider listed on their discharge instructions or a physician of their choice this week to arrange follow up for further evaluation of possible pre-hypertension or Hypertension Transfer Transfered to: [facility]: ALS Transfer rationale: patient coded in the ExpressCare and CPR was performed Accepting physician: Dr Watts Medical Decision Making [facility] Narrative Medical decision making narrative: CPR was initiated in the bathroom after patient was found unresponsive on the toilet and slumped over with cyanotic lips. About 1 minute of CPR was performed on the patient before regaining a pulse. No AED was used however patient does have a pacemaker unaware if has a defibrillator in it or not. Patient was only responsive to painful stimuli after regaining a Pulse. will non-rebreather at 100% oxygen was placed on the patient.Pulse was also very low in the 30s or 40s and a peer to be in AFib based on heart sounds and the or irregular pulses. EMS was called and patient was taken to [facility] for further evaluation and treatment. Cracking of the ribs was heard during CPR most likely 2-3 rib fractures Due to the CPR trauma. Differential Diagnosis Differential Diagnosis: Differential diagnosis: STEMI/ACS, AAA, PE, spontaneous pneumothorax, cardiac tamponade, esophageal rupture, pneumonia, GERD, muscle-skeletal pain or trauma, endocarditis, cocaine-related ischemia, pericarditis, URI, bronchitis. Vital Signs Vital Signs: Vital Signs Temperature 36.2 C L 11/28/24 12:40 Pulse Rate 48 L 11/28/24 12:40 Respiratory Rate 22 H 11/28/24 12:40 Blood Pressure 150/79 H 11/28/24 12:40 Pulse Oximetry 100 11/28/24 12:40 Oxygen Delivery Non-Rebreather Mask 11/28/24 12:40 Oxygen Flow Rate 15 11/28/24 12:40 Temperature 36.2 C L 11/28/24 12:40 Pulse Rate 48 L 11/28/24 12:40 Respiratory Rate 22 H 11/28/24 12:40 Blood Pressure 150/79 H 11/28/24 12:40 Pulse Oximetry 100 11/28/24 12:40 Oxygen Delivery Non-Rebreather Mask 11/28/24 12:40 Oxygen Flow Rate 15 11/28/24 12:40 Critical Care Time Critical Care Time Critical Care Time: Yes Total Critical Care Time: 20 Discharge Plan Discharge Clinical Impression: Cardiac arrest Patient Disposition: Acute Care Hospital Condition: Critical Instructions: Antibiotic Form Patient Language: Mauritian Follow-up/Referrals: PHYSICIAN NOT ON STAFF,NONSTAFF [Primary Care Provider] - Time of Disposition: 12:53
== END 2024-11-28 12:53 | disposition short-term general hospital (02) ==
PROVIDERS: Emergency Provider Nurse Practitioner Family
DX: I46.9 Cardiac arrest, cause unspecified (principal); I48.91 Unspecified atrial fibrillation; Z95.0 Presence of cardiac pacemaker
CPT/HCPCS: 99215; G0463

== ENCOUNTER 2024-11-28 13:17 | Inpatient (IN) | payer MEDICARE, SELFPAY ==
[2024-11-28] VITALS (12 sets, daily range): BP systolic 124–139; BP diastolic 43–59; PULSE 59–72; RESP 18–20; TEMP 36.6–37.1; O2SAT 94–100; BMI 21.9
--- NOTE | ~2024-11-28 | XR_ITS ---
EXAM: XR ankle RT min 3V DATE: 11/28/2024 14:48 HISTORY: PT FELL C/O R ANKLE PAIN . COMPARISON: None available. FINDINGS: Osteopenia. Ossific fragments along the lateral margin of the medial malleolus and at the tip of the medial malleolus, the lateral likely representing a small malleolus avulsion fracture frag ment. Slightly oblique fracture of the distal right fibula, at the level of the joint line (Krishnamurthy B). No lytic or blastic lesion. Joint spaces are maintained. No erosion or periosteal change. Plantar en thesopathy. Ankle joint effusion. IMPRESSION: Bimalleolar right ankle fracture. Reviewed, dictated and finalized at location K.
--- NOTE | ~2024-11-28 | CT_ITS ---
EXAMINATION: CT brain wo con DATE: 11/28/2024 14:40 INDICATION: syncope . TECHNIQUE: Computed tomography (CT) of the head was performed without intravenous contrast. The mA wa s adjusted according to patient size. Iterative reconstruction technique was employed. The dose-lengt h product was 605.33 mGy-cm. COMPARISON: None. FINDINGS: No acute intracranial hemorrhage or extra-axial fluid collection. No hydrocephalus, mass, or herniation. No acute ischemic infarct. Unremarkable dural venous sinus attenuation. No acute osseous abnormality. Right posterior scalp contusion/hematoma, near the vertex The aerated spaces are clear. Moderate atrophy and chronic white matter change. Atherosclerotic intracranial calcification. Bilater al lens replacements. Bilateral basal ganglia calcification. Focal right inferior frontal encephaloma lacia. Focal old bilateral basal ganglia lacunar infarcts. IMPRESSION: No acute intracranial process. Reviewed, dictated and finalized at location K.
--- NOTE | ~2024-11-28 | XR_ITS ---
EXAMINATION: XR chest 2V Exam Date/Time: 11/28/2024 14:40 CDT HISTORY: syncope Comparison: None. RESULT: Lines, tubes, and devices: Left chest pacer with intact leads. Intact sternotomy wires. Lungs and pleura: Clear. Cardiomediastinal silhouette: Unremarkable. Other: No acute osseous or upper abdominal finding. IMPRESSION: No acute cardiopulmonary process. Reviewed, dictated and finalized at location K.
--- NOTE | 2024-11-28 13:57 | ECG_ITS ---
Test Date: 2024-11-28 14:31:22 Measurements Intervals [place] Rate: 60 P: 0 LA: 0 QRS: 153 QRSD: 132 T: 62 QT: 453 QTc: 453 Interpretive Statements ELECTRONIC VENTRICULAR PACEMAKER BASELINE ARTIFACT- I, II, III, AVR, AVL, AVF NO FURTHER INTERPRETATION IS POSSIBLE ATYPICAL ECG No previous ECG available for comparison Electronically Signed On 11-28-2024 14:49:23 CDT by Shadi Leyva D.O.
--- OUTSIDE RECORDS SUMMARY | 2024-11-28 14:04 | XMS_ITS | Clinical Summary ---
Author Organization [facility] Address [address] [place] [id number] Care Team Providers Care Metaphysicist Name Role Phone Samm Avalos OD Unavailable Caty Wilson Primary Care Provider [phone] Allergies Active Allergy Reactions Criticality Noted Date [...] Sigmoidoscopy Discontinued Medical Devices Implanted Type Area Drawing Kiln Operator Device Identifier Shelf Expiration Date Model / Serial / Lot Lens Iol Tecnis Protec +22 D C Hpt Bcnvx 1 Pc Ant - [id number] Implanted:Qty: 1 on 12/07/2020 by Edmundo Hylton MD at [facility] Lens Right: Eye [employer] . [id number] 08/07/2024 [id number] / [id number] / Description:Implant package intact prior to opening. Received at ambient temperature. Lens Iol Tecnis Protec +22 D C Hpt Bcnvx 1 Pc Ant - [id number] Implanted:Qty: 1 on 12/14/2020 by Edmundo Hylton MD at [facility] Lens Left: Eye [employer] . [id number] 09/25/2024 [id number] / [id number] / Description:Implant package intact prior to opening. Received at ambient temperature. Procedures Procedure Name Priority Date/Time Associated Diagnosis Comments EYE EXAM DILATED Routine 07/06/2020 from Last 3 Months or Most Recently Relevant to Health Maintenance Results * EYE EXAM DILATED (07/06/2020) Retinopathy Present Yes Outside Provider SCANS from Last 3 Months or Most Recently Relevant to Health Maintenance Care Teams Metaphysicist Relationship Specialty Start Date End Date Caty Wilson APNP [address] [place] [id number] PCP - General Nurse Practitioner 12/05/20 Samm Avalos OD [address] [place] [address] Referring Provider Optometry 07/11/20
--- OUTSIDE RECORDS SUMMARY | 2024-11-28 14:04 | XMS_ITS | Referral Summary ---
Author Organization [facility] Address [address] [place] [address] Care Team Providers Care Home Advisor Name Role Phone Samm Avalos OD Unavailable Caty Wilson Primary Care Provider [phone] Allergies Active Allergy Reactions Criticality Noted Date [...] on file Medical Devices Implanted Type Area Watch Repair Technician Device Identifier Shelf Expiration Date Model / Serial / Lot Lens Iol Tecnis Protec +22 D C Hpt Bcnvx 1 Pc Ant - [id number] Implanted:Qty: 1 on 12/07/2020 by Edmundo Hylton MD at [facility] Lens Right: Eye [employer] . [id number] 08/07/2024 [id number] / [id number] / Description:Implant package intact prior to opening. Received at ambient temperature. Lens Iol Tecnis Protec +22 D C Hpt Bcnvx 1 Pc Ant - [id number] Implanted:Qty: 1 on 12/14/2020 by Edmundo Hylton MD at [facility] Lens Left: Eye [employer] . [id number] 09/25/2024 [id number] / [id number] / Description:Implant package intact prior to opening. Received at ambient temperature. Procedures Procedure Name Priority Date/Time Associated Diagnosis Comments EYE EXAM DILATED Routine 07/06/2020 from Last 3 Months or Most Recently Relevant to Health Maintenance Results * EYE EXAM DILATED (07/06/2020) Retinopathy Present Yes Outside Provider SCANS from Last 3 Months or Most Recently Relevant to Health Maintenance Care Teams Home Advisor Relationship Specialty Start Date End Date Caty Wilson APNP [address] [place] [address] PCP - General Nurse Practitioner 12/05/20 Samm Avalos OD [address] [place] [address] Referring Provider Optometry 07/11/20
[2024-11-28] MEDS: SODIUM CHLORIDE 0.9% IV 1,000 ML 999 ML IV CONT (14:54)
[2024-11-28 14:56] LABS: Basophils Absolute Auto 0.1 K/mm3 (0.0-0.1); Basophils Percent Auto 0.5 % (0.2-1.2); Hematocrit 32.2 % (37.0-47.0); Hemoglobin 10.2 g/dL (12.0-15.0); Immature Granulocyte Absolute 0.07 K/mm3 (0.00-0.031); Immature Granulocyte Percent A 0.7 % (0-0.5); Lymphocytes Absolute Auto 0.39 K/mm3 (0.9-3.2); Mean Corpuscular HGB Conc 31.7 g/dl (32-36); Mean Corpuscular Hemoglobin 29.2 pg (26-34); Mean Corpuscular Volume 92.3 fl (80-100); Mean Platelet Volume 10.2 fl (7.4-10.4); Monocytes Absolute Auto 0.7 K/mm3 (0.1-0.6); Monocytes Percent Auto 7.1 % (2.6-8.5); Neutrophils Absolute Auto 8.5 K/mm3 (1.3-6.7); Neutrophils Percent Auto 87.7 % (45.5-73.1); Platelet Count Result 234 k/mm3 (150-375); Red Blood Count 3.49 M/mm3 (4.2-5.4); Red Cell Distribution Width 14.3 % (11.5-14.5); White Blood Count 9.7 K/mm3 (4.5-10.0)
[2024-11-28 15:05] LABS: Alanine Aminotransferase 51 U/L (6-35); Alkaline Phosphatase 89 U/L (38-126); Anion Gap 14 mmol/L (4-12); Aspartate Amino Transferase 43 U/L (14-36); Bilirubin,Total 0.5 mg/dL (0.2-1.3); Blood Urea Nitrogen 30 mg/dL (7-17); Calcium 8.9 mg/dL (8.4-10.2); Carbon Dioxide 20 mmol/L (22-30); Chloride 106 mmol/L (98-107); Estimated CRCL calculation 35 ml/min; Estimated Glomerular Filt Rate 48; Glucose 234 mg/dL (65-110); Potassium 4.3 mmol/L (3.4-5.0); Sodium 140 mmol/L (137-145)
[2024-11-28 15:08] LABS: INR 1.1; Prothrombin Time 14.5 Seconds (11.1-14.7)
[2024-11-28 15:17] LABS: Troponin I < 0.012 ng/mL (0.000-0.034)
--- NOTE | 2024-11-28 16:19 | ED_ITS ---
HPI - Syncope General Chief Complaint: Syncope Stated Complaint: SYNCOPE, CPR X1 MIN Time Seen by Provider: 11/28/24 13:56 Source: patient and family Mode of arrival: EMS Limitations: no limitations History of Present Illness HPI narrative: 78-year-old with a history of hypertension, status post left atrial myxoma removal several years ago here with the complaints of having syncopal episode earlier this morning. who is at bedside states that they are traveling from [place] to [place] by car . He stated that he was sick for the 1st few days with nausea vomiting diarrhea however since last day patient started having a the symptoms. Patient states that she was in the rest room in the stop area passed out while she was sitting on the toilet. Patient stated that she was extremely lightheaded and passed out. She was later put on the floor and a brief CPR was performed by the time the EMS arrived to wide awake alert denies having any chest pain or shortness of breath. complaint: felt faint Onset (ago): hour(s) (1) -: minutes(s) (1) Prodromal symptoms: none Witnessed: Yes - by Other () Context: other (while sitting on the toilet) Injuries sustained associated with event: RLE (ankle) Current symptoms: none Treatments prior to arrival: none Related Data Allergies Allergy/AdvReac Type Severity Reaction Status Date / Time Penicillins Allergy Unknown Unknown Verified 11/28/24 13:25 Review of Systems 2 Review of Systems: All systems reviewed & are unremarkable except as noted in HPI and below Constitutional: Constitutional: Reports no additional constitutional complaints Eyes: Eyes: Reports no additional eye complaints ENT: Reports system reviewed and no additional complaints, except as documented Cardiovascular: Cardiovascular: Reports no additional cardiovascular complaints PMFSH Past Medical History Medical History (Updated 11/28/24 @ 16:30 by Willis Mcdonough MD) Pacemaker Afib Exam 2 Narrative: GENERAL: Well-appearing, well-nourished, and in no acute distress. HEAD: Normocephalic, atraumatic. EYES: PERRLA and EOMI. ENT: Nares clear, no rhinorrhea or epistaxis. Mucous membranes moist. NECK: Supple. CHEST: Clear to auscultation. No respiratory distress. HEART: Regular rate and rhythm. No murmur heard. Normal peripheral pulses. ABDOMEN: Soft, nontender, nondistended, normal active bowel sounds. EXTREMITIES: Normal range of motion. No edema. Mild soft tissues swelling and on the right ankle tender on palpation SKIN: Warm, dry, no rash. NEURO: No focal deficits. Alert and oriented x3. PSYCH: Normal mood and affect. Course Course Emergency Course: Patient feeling much better after a L of normal saline infusion. Discussed lab work and x-ray findings with the was in and her was at bedside. Patient is now traveling from a [place] to [place] have 2 days of car ride id has been was requesting for admission for observation as he does not feel comfortable going back in the car. Discussed with hospitalist the patient Vital Signs Vital signs: Vital Signs Temperature 36.6 C 11/28/24 13:19 Pulse Rate 60 11/28/24 13:19 Respiratory Rate 20 11/28/24 13:19 Blood Pressure 131/50 L 11/28/24 13:19 Pulse Oximetry 100 11/28/24 13:19 Oxygen Delivery Room Air 11/28/24 13:19 Temperature 36.6 C 11/28/24 13:19 Pulse Rate 60 11/28/24 14:57 Respiratory Rate 20 11/28/24 13:19 Blood Pressure 129/46 L 11/28/24 14:57 Pulse Oximetry 100 11/28/24 13:19 Oxygen Delivery Room Air 11/28/24 13:19 MDM - Syncope Differential Diagnosis Differential diagnosis: Likely syncope due to orthostatic hypotension, vasovagal syncope and dehydration Medical Records Attestation: I reviewed the patient's medical records. Lab Data Attestation: I reviewed the patient's lab results. 11/28/24 14:05 11/28/24 14:05 Labs: Lab Results 11/28/24 Range/Units 14:05 WBC 9.7 (4.5-10.0) K/mm3 RBC 3.49 L (4.2-5.4) M/mm3 Hgb 10.2 L (12.0-15.0) g/dL Hct 32.2 L (37.0-47.0) % MCV 92.3 (80-100) fl MCH 29.2 (26-34) pg MCHC 31.7 L (32-36) g/dl RDW 14.3 (11.5-14.5) % Plt Count 234 (150-375) k/mm3 MPV 10.2 (7.4-10.4) fl Immature Gran % (Auto) 0.7 H (0-0.5) % Neut % (Auto) 87.7 H (45.5-73.1) % Lymph % (Auto) 4.0 L (18.3-44.2) % Smyth % (Auto) 7.1 (2.6-8.5) % Eos % (Auto) 0.0 (0-4.4) % Baso % (Auto) 0.5 (0.2-1.2) % Lymph # (Auto) 0.39 L (0.9-3.2) K/mm3 Smyth # (Auto) 0.7 H (0.1-0.6) K/mm3 Eos # (Auto) 0.0 (0-0.3) K/mm3 Baso # (Auto) 0.1 (0.0-0.1) K/mm3 Abs Immat Gran (auto) 0.07 H (0.00-0.031) K/mm3 Absolute Neuts (auto) 8.5 H (1.3-6.7) K/mm3 Absolute Nucleated RBC 0.000 (0.0-0.012) K/mm3 Nucleated RBC % 0.0 (0.0-0.2) % PT 14.5 (11.1-14.7) Seconds INR 1.1 Sodium 140 (137-145) mmol/L Potassium 4.3 (3.4-5.0) mmol/L Chloride 106 (98-107) mmol/L Carbon Dioxide 20 L (22-30) mmol/L Anion Gap 14 H (4-12) mmol/L BUN 30 H (7-17) mg/dL Creatinine 1.10 H (0.7-1.0) mg/dL Estim Creat Clear Calc 35 ml/min Estimated GFR 48 L (59 - ) Glucose 234 H (65-110) mg/dL Calcium 8.9 (8.4-10.2) mg/dL Total Bilirubin 0.5 (0.2-1.3) mg/dL AST 43 H (14-36) U/L ALT 51 H (6-35) U/L Alkaline Phosphatase 89 (38-126) U/L Troponin I < 0.012 (0.000-0.034) ng/mL Total Protein 7.0 (6.3-8.2) g/dL Albumin 4.0 (3.5-5.1) g/dL ECG Data EKG #1: ECG completion date: 11/28/24 ECG completion time: 14:31 EKG Interpretation: normal rate (60) and no acute changes Pacemaker function: normal pacer function Discharge Plan Discharge Clinical Impression: Acute dehydration Syncope Qualifiers: Syncope type: vasovagal syncope Qualified Code(s): R55 - Syncope and collapse Bimalleolar fracture of right ankle Qualifiers: Encounter type: initial encounter Fracture type: closed Qualified Code(s): S 82.841A - Displaced bimalleolar fracture of right lower leg, initial encounter for closed fracture Patient Disposition: Still a Patient Condition: Stable Patient Language: Citizen Of [place] Follow-up/Referrals: PHYSICIAN NOT ON STAFF,NONSTAFF [Primary Care Provider] - Time of Disposition: 16:21
--- NOTE | 2024-11-28 16:39 | PC.NURSE ---
verbal order received for right ankle posterior short leg splint and crutches.
--- NOTE | 2024-11-28 17:30 | ADMGEN ---
This patient, Angela Sawyer, was admitted to 3 Medical Room 346-01. Patient/family oriented to hospital policies and general routines including ID bracelet, bed and alarms, visiting hours, pain management, procedures, bathroom and other care routines, personal items, smoking policy, room service/diet, and visiting hours. Information on how to activate the Rapid Response Team has been discussed. Patient/Family are encouraged to report perceived risks to care and to ask questions if they do not understand what they are told or what they should do.
[2024-11-28] MEDS: SODIUM CHLORIDE 0.9% IV 1,000 ML 125 ML IV CONT (17:46)
[2024-11-28 18:08] LABS: Glucose Point of Care 180 mg/dl (65-105)
--- NOTE | 2024-11-28 18:54 | P.HP_ITS ---
H&P: HPI History of Present Illness Date/Time: 11/28/24 18:54 Chief Complaint: Syncope Narrative: 78-year-old female presents the hospital with syncope. Patient states that she was having nausea and vomiting for a few days while traveling across country and was unable to take her cardiac medications. Patient states that she went to urgent care and right before she left she had passed out. They were unable to feel pulses they started CPR the patient had left CPR, patient was alert and oriented without respiratory distress. And was presented to the hospital. Patient's pacemaker was interrogated with possible V-tach at the rate of 220 for less than a minute. Patient states that she has no complaints at this time. And she plans on continue in a cross-country tomorrow. She states that once she gets some fluid in her and her cardiac medications she will be fine. Patient educated that she should speak with Cardiology for planning on leaving as she may need more of a cardiology workup been just starting home meds. Patient denies nausea or vomiting at this time. Review of Systems Review of Systems: 12 systems were reviewed and are negativ e except for as per HPI. [facility] Past Medical History Medical History (Updated 11/29/24 @ 00:20 by Sunita Jain, CHIVO) Pacemaker Afib Social History Social History Smoking status: Never smoker Second hand tobacco smoke exposure: No Alcohol intake: former Substance use: never Substance use type: does not use Last use: over 1 year ago Do You Feel Safe in your Home?: Yes Lack of Transportation: No Lack of Food: Never True Current Housing: I Have Housing Concerned About Future Housing: No Difficulty Paying Gas/Electric Bills: No Difficulty Paying for Meds: No Currently Unemployed: No Education: Decline to Answer Difficulty w/ Childcare or Family Care: No Spiritual care concerns: No Meds Home Medications and Allergies Home Medications ?Medication ?Instructions ?Recorded ?Confirmed ?Type apixaban 5 mg tablet (Eliquis) 5 mg PO Q12H afib 11/28/24 11/28/24 History bumetanide 1 mg tablet 2 mg PO QAM [facility] 11/28/24 11/28/24 History bumetanide 2 mg tablet 2 mg PO QAM 11/28/24 11/28/24 History digoxin 125 mcg (0.125 mg) tablet 125 mcg PO QAM [facility] 11/28/24 11/28/24 History ezetimibe 10 mg tablet 10 mg PO QHS hypercholesterolemia 11/28/24 11/28/24 History glipizide 5 mg tablet 5 mg PO BID diabetes type 2 11/28/24 11/28/24 History metformin 500 mg tablet 1,000 mg PO BID diabetes type 2 11/28/24 11/28/24 History nebivolol 10 mg tablet 10 mg PO QAM 11/28/24 11/28/24 History sacubitril 24 mg-valsartan 26 mg 0.5 tablet PO BID chf 11/28/24 11/28/24 History tablet (Entresto) simvastatin 20 mg tablet 20 mg PO QHS 11/28/24 11/28/24 History Allergies Allergy/AdvReac Type Severity Reaction Status Date / Time Penicillins Allergy Unknown Unknown Verified 11/28/24 13:25 Vital Signs Vital Signs - 24 hr 11/28/24 13:19 11/28/24 14:55 11/28/24 14:56 Temperature 97.9 F Pulse Rate 60 60 60 Respiratory Rate 20 Blood Pressure 131/50 L 131/49 L 129/57 L Pulse Oximetry 100 Oxygen Delivery Room Air 11/28/24 14:57 11/28/24 16:40 11/28/24 18:02 Temperature 98.8 F Pulse Rate 60 60 60 Respiratory Rate 19 18 Blood Pressure 129/46 L 139/59 L 124/43 L Pulse Oximetry 100 100 Oxygen Delivery Exam Narrative: General: well appearing, appears stated age. HEENT: normocephalic, atraumatic. Mucous membranes moist. EOMI, PERRLA, bilateral sclera anicteric, no conjunctival injection. Neck supple without JVD, lymphadenopathy, or bruit. Respiratory: clear to ascultation bilaterally. No rales/rhonic/wheezes. Cardiovascular: Regular rate and rhythm, normal S1-S2 upon ascultation. No murmurs, rubs, or clicks. PMI is nondisplaced, capillary refill less than 3 second. Abdomen: Soft, round, no pulsatile masses, nondistended and nontender. No rebound, no guarding. No CVA tenderness, no hepatosplenomegaly. Bowel sounds present to all four quadrants. No high pitch or tinkling sounds, resonant to percussion. Extremities: No cyanosis, clubbing, or edema present. Pulses are palpable 2/2. Active ROM to all four extremities. Neuro: Alert and orientated x 4. PERRLA. Cranial nerves 2-12 intact without focal deficit. Skin: Warm, dry, and intact, without rash, erythema, or lesion. Psych: pleasant, cooperative, normal speech, normal affect, no hallucinations, no dysarthia H&P: Results Labs Labs: Short CBC 11/28/24 Range/Units 14:05 WBC 9.7 (4.5-10.0) K/mm3 Hgb 10.2 L (12.0-15.0) g/dL Hct 32.2 L (37.0-47.0) % Plt Count 234 (150-375) k/mm3 BMP 11/28/24 14:05 Sodium 140 Potassium 4.3 Chloride 106 Carbon Dioxide 20 L BUN 30 H Creatinine 1.10 H Glucose 234 H Calcium 8.9 Cardiac Enzymes 11/28/24 Range/Units 14:05 Troponin I < 0.012 (0.000-0.034) ng/mL Liver Function 11/28/24 Range/Units 14:05 Total Bilirubin 0.5 (0.2-1.3) mg/dL AST 43 H (14-36) U/L ALT 51 H (6-35) U/L Alkaline Phosphatase 89 (38-126) U/L Albumin 4.0 (3.5-5.1) g/dL Assessment and Plan Assessment and plan (1) V tach: Code(s): I47.20 - Ventricular tachycardia, unspecified Status: Acute Assessment and Plan: Likely secondary to not tolerating cardiac medications due to vomiting Cardiology consulted pending recommendations Restart Bumex, digoxin, Bystolic Pacemaker interrogated, report in paper chart (2) Acute dehydration: Code(s): E86.0 - Dehydration Status: Acute Assessment and Plan: IV fluids for hydration (3) Syncope: Qualifiers: Syncope type: vasovagal syncope Qualified Code(s): R55 - Syncope and collapse Code(s): R55 - Syncope and collapse Status: Acute Assessment and Plan: Likely secondary to dehydration and V-tach See above (4) CHF (congestive heart failure): Code(s): I50.9 - Heart failure, unspecified Status: Acute Assessment and Plan: Continue Bumex in the morning (5) Afib: Code(s): I48.91 - Unspecified atrial fibrillation Status: Acute Assessment and Plan: Continue Bystolic and Eliquis Quality VTE Prophylaxis VTE prophylaxis: mechanical ordered and pharmacologic ordered Hospitalist MIPS Advance Care Plan I have confirmed that the patient's Advanced Care Plan is present, code status is documented, or surrogate decision maker is listed in patient medical record.: Yes Medication Reconciliation I have utilized all available resources to obtain, update and review the patients current medications (includes all prescriptions, OTC, herbals, cannabis, and nutritional supplements).: Yes
[2024-11-28] MEDS: NEBIVOLOL HCL 5 MG TABLET 10 MG PO (20:19)
[2024-11-28] MEDS: DIGOXIN TAB 125 MCG TABLET PO (20:19)
[2024-11-28] MEDS: SACUBITRIL/VALSARTAN 12-13 MG TABLET 1 TAB PO (20:20)
--- NOTE | 2024-11-28 21:07 | PC.NURSE ---
2004: Report called to KELLY Vuong 2024: Home medications verified against external list and written list provided by patient. notified of transfer to room 214. 2054: Patient transferred with all belongings and medications via bed to IMU 214.
[2024-11-28] MEDS: SIMVASTATIN 20 MG TABLET PO (23:07)
[2024-11-28] MEDS: EZETIMIBE 10 MG TABLET PO (23:07)
[2024-11-28] MEDS: APIXABAN 5 MG TABLET PO (23:07)
--- NOTE | 2024-11-28 23:36 | PC.NURSE ---
This patient, Angela Sawyer, was received from [facility] on 11/28/24 at 2150 to 214. Patient/family oriented to unit policies and routines
[2024-11-29] VITALS (14 sets, daily range): BP systolic 138–153; BP diastolic 51–65; PULSE 59–117; RESP 14–18; TEMP 36.6–37; O2SAT 100
[2024-11-29 00:10] LABS: Glucose Point of Care 193 mg/dl (65-105)
[2024-11-29 06:12] LABS: Alanine Aminotransferase 74 U/L (6-35); Albumin Level 3.5 g/dL (3.5-5.1); Alkaline Phosphatase 108 U/L (38-126); Anion Gap 8 mmol/L (4-12); Aspartate Amino Transferase 80 U/L (14-36); Bilirubin,Total 0.3 mg/dL (0.2-1.3); Blood Urea Nitrogen 24 mg/dL (7-17); Calcium 8.6 mg/dL (8.4-10.2); Carbon Dioxide 21 mmol/L (22-30); Chloride 109 mmol/L (98-107); Estimated CRCL calculation 37 ml/min; Estimated Glomerular Filt Rate 52; Glucose 160 mg/dL (65-110); Sodium 138 mmol/L (137-145)
[2024-11-29] MEDS: SODIUM CHLORIDE 0.9% IV 1,000 ML 125 ML IV CONT ×2 (06:19→19:30)
[2024-11-29 08:07] LABS: Magnesium 1.9 mg/dL (1.6-2.3)
[2024-11-29] MEDS: BUMETANIDE 1 MG TABLET 2 MG PO (09:21)
[2024-11-29] MEDS: APIXABAN 5 MG TABLET PO ×2 (09:22→21:42)
[2024-11-29] MEDS: SACUBITRIL/VALSARTAN 12-13 MG TABLET 1 TAB PO ×2 (09:22→21:43)
--- NOTE | 2024-11-29 11:03 | P.CONCA_ITS ---
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 She currently has a [employer] cardiac resynchronization device, not a defibrillator. She by her report is chronic atrial fibrillation with her physicians up in [place] with considering an attempt at cardioversion at some point. She says her current device was implanted in July of last year just a few months ago. She does not report any history of ventricular arrhythmias. Yesterday evening following 2 episodes of loss of consciousness, the 2nd 1 in an urgent care center she was apparently pulseless and was shocked by an AED. Interrogation of her device demonstrates monomorphic ventricular tachycardia with a heart rate of approximately 250. She has been stable since this arrhythmia was terminated electrically. It is certainly possible that she was at more risk for arrhythmias since her medical regimen was interrupted for a couple of days because of a GI, diarrheal illness. Her lab data does not suggest the which she was significantly dehydrated however her potassium level was normal. At this point I would like to recommend resuming standard medical regimen which has already been done. I am going to try to have a conversation if possible with her fiberline supervisor in [place] to at least obtain their opinion about her case in general. It is not clear that she is stable to take highway trip all the way to [facility]the [facility] after being rescued from ventricular tachycardia last evening. I would check a calcium/magnesium level for completeness. Further recommendations will be forthcoming following my ability to discuss the situation with her fiberline supervisor in [place]. Amos Mckenzie MD [facility] History of Present Illness History of Present Illness Consult date/time: 11/29/24 11:03 Reason For Visit: syncope Narrative: This is a very pleasant 78-year-old lady that I am seeing at the request of the hospitalist after she was brought to the emergency room yesterday evening after being resuscitated out of cardiac arrest. The patient is unknown to me and unknown to physicians here prior to this encounter. She was at a local restaurant and apparently had a syncopal episode and for that reason was brought to an urgent care center. In the urgent care center apparently she had another episode of loss of consciousness and lost pulse. CPR was initiated and an AED shocked her into organized rhythm a pulse was restored and she was brought to the emergency room for evaluation. The patient following resuscitation was admitted and has had a very uneventful night and feels relatively well this morning. She has a very interesting cardiac history of course we have none of the records regarding any of this. She states that she spends the mccabe in [place] in the ferr[place] up in 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 She underwent surgical excision of this and after the myxoma was removed she required a pacemaker to be implanted. She also reports a history of atrial fibrillation following that. She states the original pacemaker that was implanted in [place] was removed and upgraded to a cardiac resynchronization device by an fiberline supervisor in [facility]. 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 She does not report any knowledge of coronary artery disease. She does state that she had mitral valve regurgitation identified following surgery. The patient was passing through this area on a highway trip between [place] and going back to [place] where she resides. For a couple of days she had not been on her medical regimen which consists of apixaban, Bumex, digoxin, nebivolol and Entresto because of the GI/diarrheal illness with a lot of nausea. She states that upon return to home her physicians were going to consider cardioversion to try to restore sinus rhythm. She does not report any history of her knowledge of ventricular arrhythmias. Her biventricular pacemaker device is a [employer] device which was interrogated last evening. She did have sustained ventricular tachycardia identified at the time of collapsing last night. Electrolytes done upon admission show her potassium levels to be normal. I do not see calcium or and or magnesium on the chart. The patient and her are very good historians they do report that she does have some degree of left ventricular systolic dysfunction as 1 would expect because of her medical regimen as detailed above. Review of Systems 2 Constitutional: Constitutional: Reports no additional constitutional complaints Eyes: Eyes: Reports no additional eye complaints ENT: Reports system reviewed and no additional complaints, except as documented Cardiovascular: Cardiovascular: Reports as per HPI and Reports no additional cardiovascular complaints Respiratory: Respiratory: Reports no additional respiratory complaints Gastrointestinal: Gastrointestinal: Reports as per HPI Comments: Recent diarrheal illness Musculoskeletal: Musculoskeletal: Reports no additional musculoskeletal complaints Integumentary/Breasts: Skin/Breast: Reports system reviewed and no additional complaints, except as docu Neurologic: Reports system reviewed and no additional complaints, except as documented Endocrine: Endocrine: Reports no additional endocrine complaints Hematologic/Lymphatic: Hematologic/Lymphatic: Reports no additional hematologic/lymphatic complaints Allergic/Immunologic: Allergic/Immunologic: Reports no additional allergic/immunologic complaints [facility] Past Medical History Medical History (Updated 11/29/24 @ 00:20 by Sunita Jain, SCIENTIFIC INVESTIGATOR) Pacemaker Afib Social History Social History Smoking status: Never smoker Second hand tobacco smoke exposure: No Alcohol intake: former Substance use: never Substance use type: does not use Last use: over 1 year ago Do You Feel Safe in your Home?: Yes Lack of Transportation: No Lack of Food: Never True Current Housing: I Have Housing Concerned About Future Housing: No Difficulty Paying Gas/Electric Bills: No Difficulty Paying for Meds: No Currently Unemployed: No Education: Decline to Answer Difficulty w/ Childcare or Family Care: No Spiritual care concerns: No Meds Home Medications and Allergies Home Medications ?Medication ?Instructions ?Recorded ?Confirmed ?Type apixaban 5 mg tablet (Eliquis) 5 mg PO Q12H afib 11/28/24 11/28/24 History bumetanide 1 mg tablet [address] [facility] 11/28/24 11/28/24 History bumetanide 2 mg tablet 2 mg PO QAM 11/28/24 11/28/24 History digoxin 125 mcg (0.125 mg) tablet [address] [facility] 11/28/24 11/28/24 History ezetimibe 10 mg tablet 10 mg PO QHS hypercholesterolemia 11/28/24 11/28/24 History glipizide 5 mg tablet 5 mg PO BID diabetes type 2 11/28/24 11/28/24 History metformin 500 mg tablet 1,000 mg PO BID diabetes type 2 11/28/24 11/28/24 History nebivolol 10 mg tablet 10 mg PO QAM 11/28/24 11/28/24 History sacubitril 24 mg-valsartan 26 mg 0.5 tablet PO BID [place] 11/28/24 11/28/24 History tablet (Entresto) simvastatin 20 mg tablet 20 mg PO QHS 11/28/24 11/28/24 History Allergies Allergy/AdvReac Type Severity Reaction Status Date / Time Penicillins Allergy Unknown Unknown Verified 11/28/24 13:25 Vital Signs Vital Signs - 24 hr 11/28/24 13:19 11/28/24 14:55 11/28/24 14:56 Temperature 36.6 C Pulse Rate 60 60 60 Respiratory Rate 20 Blood Pressure 131/50 L 131/49 L 129/57 L Pulse Oximetry 100 Oxygen Delivery Room Air Fraction of Inspired Oxygen 11/28/24 14:57 11/28/24 16:40 11/28/24 18:02 Temperature 37.1 C Pulse Rate 60 60 60 Respiratory Rate 19 18 Blood Pressure 129/46 L 139/59 L 124/43 L Pulse Oximetry 100 100 Oxygen Delivery Fraction of Inspired Oxygen 11/28/24 20:05 11/28/24 20:19 11/28/24 20:19 Temperature 36.8 C Pulse Rate 59 L 60 60 Respiratory Rate 18 Blood Pressure 136/45 L Pulse Oximetry 100 Oxygen Delivery Fraction of Inspired Oxygen 11/28/24 20:58 11/28/24 20:58 11/28/24 21:33 Temperature Pulse Rate 60 60 Respiratory Rate 18 Blood Pressure Pulse Oximetry 100 Oxygen Delivery Room Air Room Air Fraction of Inspired Oxygen 21 11/28/24 22:00 11/28/24 22:00 11/28/24 23:45 Temperature 36.6 C 36.6 C Pulse Rate 60 60 72 Respiratory Rate 18 18 Blood Pressure 133/43 L 131/49 L Pulse Oximetry 100 94 Oxygen Delivery Fraction of Inspired Oxygen 11/28/24 23:45 11/29/24 00:00 11/29/24 02:00 Temperature Pulse Rate 60 60 Respiratory Rate Blood Pressure Pulse Oximetry Oxygen Delivery Room Air Fraction of Inspired Oxygen 11/29/24 04:00 11/29/24 04:00 11/29/24 04:00 Temperature 36.6 C Pulse Rate 60 66 Respiratory Rate 18 Blood Pressure 141/64 H Pulse Oximetry 100 Oxygen Delivery Room Air Fraction of Inspired Oxygen 11/29/24 06:00 11/29/24 08:00 11/29/24 08:00 Temperature 36.7 C Pulse Rate 60 60 60 Respiratory Rate 14 Blood Pressure 143/65 H Pulse Oximetry 100 Oxygen Delivery Fraction of Inspired Oxygen 11/29/24 10:00 Temperature Pulse Rate 60 Respiratory Rate Blood Pressure Pulse Oximetry Oxygen Delivery Fraction of Inspired Oxygen Exam 2 Const: General: comfortable and no acute distress Other: Very pleasant comfortable lady appearing her stated age alert and oriented in no distress of any kind at this time HENMT: Mouth: Yes moist mucous membranes Eyes: Sclera: sclerae normal Neck: Neck: supple and no JVD Resp: Effort & Inspection: normal respiratory effort Auscultation: clear to auscultation bilaterally Cardio: Rate: regular rate Rhythm: regular rhythm Other: Grade 2/6 holosystolic EM best audible at the apex GI: GI Palp: Yes Soft to palpation Auscultation: normal bowel sounds Skin: General skin exam: normal color Neuro: Other: Alert and oriented x3 Extrem: General: normal to inspection Results Labs and Meds 11/28/24 14:05 11/29/24 05:56 Lab results: Cardiac Enzymes 11/28/24 11/29/24 Range/Units 14:05 05:56 AST 43 H 80 H (14-36) U/L Troponin I < 0.012 (0.000-0.034) ng/mL Coagulation 11/28/24 Range/Units 14:05 PT 14.5 (11.1-14.7) Seconds CBC 11/28/24 Range/Units 14:05 WBC 9.7 (4.5-10.0) K/mm3 RBC 3.49 L (4.2-5.4) M/mm3 Hgb 10.2 L (12.0-15.0) g/dL Hct 32.2 L (37.0-47.0) % Plt Count 234 (150-375) k/mm3 Lymph # (Auto) 0.39 L (0.9-3.2) K/mm3 [place] # (Auto) 0.7 H (0.1-0.6) K/mm3 Eos # (Auto) 0.0 (0-0.3) K/mm3 Baso # (Auto) 0.1 (0.0-0.1) K/mm3 Comprehensive Metabolic Panel 11/28/24 11/29/24 Range/Units 14:05 05:56 Sodium 140 138 (137-145) mmol/L Potassium 4.3 4.0 (3.4-5.0) mmol/L Chloride 106 109 H (98-107) mmol/L Carbon Dioxide 20 L 21 L (22-30) mmol/L BUN 30 H 24 H (7-17) mg/dL Creatinine 1.10 H 1.03 H (0.7-1.0) mg/dL Glucose 234 H 160 H (65-110) mg/dL Calcium 8.9 8.6 (8.4-10.2) mg/dL AST 43 H 80 H (14-36) U/L ALT 51 H 74 H (6-35) U/L Alkaline Phosphatase 89 108 (38-126) U/L Total Protein 7.0 6.0 L (6.3-8.2) g/dL Albumin 4.0 3.5 (3.5-5.1) g/dL Intake and Output 11/28/24 11/29/24 11/29/24 23:59 07:59 15:59 Intake Total 1150 Balance 1150 Intake: IV 1000 Sodium Chloride 0.9% IV 1,000 1000 ml @ 75 mls/hr IV CONT .[id number] [facility] Rx#:[id number] Oral 150
[2024-11-29 11:56] LABS: Calcium 8.5 mg/dL (8.4-10.2); Magnesium 1.9 mg/dL (1.6-2.3)
[2024-11-29 12:56] LABS: Glucose Point of Care 129 mg/dl (65-105)
--- NOTE | 2024-11-29 13:16 | P.PNIM_ITS ---
Progress Note: A&P Assessment and Plan (1) V tach: Code(s): I47.20 - Ventricular tachycardia, unspecified Status: Acute Assessment and Plan: Likely secondary to not tolerating cardiac medications due to vomiting Cardiology consulted pending recommendations continue Bumex, digoxin, Bystolic Pacemaker interrogated, report in paper chart tele monitoring replet K and Mg as needed (2) Acute dehydration: Code(s): E86.0 - Dehydration Status: Acute Assessment and Plan: IV fluids for hydration (3) Syncope: Qualifiers: Syncope type: vasovagal syncope Qualified Code(s): R55 - Syncope and collapse Code(s): R55 - Syncope and collapse Status: Acute Assessment and Plan: Likely secondary to dehydration and V-tach See above (4) CHF (congestive heart failure): Code(s): I50.9 - Heart failure, unspecified Status: Acute Assessment and Plan: Continue Bumex (5) Afib: Code(s): I48.91 - Unspecified atrial fibrillation Status: Acute Assessment and Plan: Continue Bystolic and Eliquis Subjective Date/time seen: 11/29/24 13:16 Interval history: per HPi: 78-year-old female presents the hospital with syncope. Patient states that she was having nausea and vomiting for a few days while traveling across country and was unable to take her cardiac medications. Patient states that she went to urgent care and right before she left she had passed out. They were unable to feel pulses they started CPR the patient had left CPR, patient was alert and oriented without respiratory distress. And was presented to the hospital. Patient's pacemaker was interrogated with possible V-tach at the rate of 220 for less than a minute. Patient states that she has no complaints at this time. And she plans on continue in a cross-country tomorrow. She states that once she gets some fluid in her and her cardiac medications she will be fine. Patient educated that she should speak with Cardiology for planning on leaving as she may need more of a cardiology workup been just starting home meds. Patient denies nausea or vomiting at this time. 11/29/24 Patient was seen examined at bedside. She has been with appear denies any chest pain, shortness a breath, abdominal pain, nausea vomiting. Nausea vomiting and diarrhea improving Cardiology team on board. Will follow recommendation X-ray of right ankle showed fracture. orthopedic team has been consulted. Review of Systems Review of Systems: 12 systems were reviewed and are negativ e except for as per HPI. Exam Narrative: General: well appearing, appears stated age. HEENT: normocephalic, atraumatic. Mucous membranes moist. EOMI, PERRLA, bilateral sclera anicteric, no conjunctival injection. Neck supple without JVD, lymphadenopathy, or bruit. Respiratory: clear to ascultation bilaterally. No rales/rhonic/wheezes. Cardiovascular: Regular rate and rhythm, normal S1-S2 upon ascultation. No murmurs, rubs, or clicks. PMI is nondisplaced, capillary refill less than 3 second. Abdomen: Soft, round, no pulsatile masses, nondistended and nontender. No rebound, no guarding. No CVA tenderness, no hepatosplenomegaly. Bowel sounds present to all four quadrants. No high pitch or tinkling sounds, resonant to percussion. Extremities: No cyanosis, clubbing, or edema present. Pulses are palpable 2/2. Active ROM to all four extremities. Neuro: Alert and orientated x 4. PERRLA. Cranial nerves 2-12 intact without focal deficit. Skin: Warm, dry, and intact, without rash, erythema, or lesion. Psych: pleasant, cooperative, normal speech, normal affect, no hallucinations, no dysarthia Objective Data Vital Signs Vital Signs: Vital Signs - 24 hr 11/28/24 13:19 11/28/24 14:55 11/28/24 14:56 Temperature 97.9 F Pulse Rate 60 60 60 Respiratory Rate 20 Blood Pressure 131/50 L 131/49 L 129/57 L Pulse Oximetry 100 Oxygen Delivery Room Air Fraction of Inspired Oxygen 11/28/24 14:57 11/28/24 16:40 11/28/24 18:02 Temperature 98.8 F Pulse Rate 60 60 60 Respiratory Rate 19 18 Blood Pressure 129/46 L 139/59 L 124/43 L Pulse Oximetry 100 100 Oxygen Delivery Fraction of Inspired Oxygen 11/28/24 20:05 11/28/24 20:19 11/28/24 20:19 Temperature 98.3 F Pulse Rate 59 L 60 60 Respiratory Rate 18 Blood Pressure 136/45 L Pulse Oximetry 100 Oxygen Delivery Fraction of Inspired Oxygen 11/28/24 20:58 11/28/24 20:58 11/28/24 21:33 Temperature Pulse Rate 60 60 Respiratory Rate 18 Blood Pressure Pulse Oximetry 100 Oxygen Delivery Room Air Room Air Fraction of Inspired Oxygen 21 11/28/24 22:00 11/28/24 22:00 11/28/24 23:45 Temperature 97.8 F 98 F Pulse Rate 60 60 72 Respiratory Rate 18 18 Blood Pressure 133/43 L 131/49 L Pulse Oximetry 100 94 Oxygen Delivery Fraction of Inspired Oxygen 11/28/24 23:45 11/29/24 00:00 11/29/24 02:00 Temperature Pulse Rate 60 60 Respiratory Rate Blood Pressure Pulse Oximetry Oxygen Delivery Room Air Fraction of Inspired Oxygen 11/29/24 04:00 11/29/24 04:00 11/29/24 04:00 Temperature 97.9 F Pulse Rate 60 66 Respiratory Rate 18 Blood Pressure 141/64 H Pulse Oximetry 100 Oxygen Delivery Room Air Fraction of Inspired Oxygen 11/29/24 06:00 11/29/24 08:00 11/29/24 08:00 Temperature 98.1 F Pulse Rate 60 60 60 Respiratory Rate 14 Blood Pressure 143/65 H Pulse Oximetry 100 Oxygen Delivery Fraction of Inspired Oxygen 11/29/24 10:00 11/29/24 12:00 11/29/24 12:00 Temperature 98.3 F Pulse Rate 60 60 60 Respiratory Rate 16 Blood Pressure 138/54 L Pulse Oximetry 100 Oxygen Delivery Fraction of Inspired Oxygen Intake/Output Intake/Output: Intake & Output 11/26/24 11/27/24 11/28/24 11/29/24 23:59 23:59 23:59 23:59 Intake Total 1000 1150 Balance 1000 1150 Meds/Results Medications: Active Medications Generic Name Dose Route Start Last Admin Trade Name Freq PRN Reason Stop Dose Admin Acetaminophen 650 mg 11/28/24 16:31 Acetaminophen 325 Mg Tablet PO Q4H PRN Mild Pain (1-3) or Fever Hydrocodone Bitart/Acetaminophen 1 tab 11/28/24 16:31 Hydrocodone/Acetaminophen (*Crx) 5-325 Mg Tablet PO Q4H PRN Pain Rated 4-6 Apixaban 5 mg 11/28/24 21:53 11/29/24 09:22 Apixaban 5 Mg Tablet PO 5 mg Q12HR LUZ MARIA Administration Bumetanide 2 mg 11/29/24 09:00 11/29/24 09:21 Bumetanide 1 Mg Tablet PO 2 mg QAM LUZ MARIA Administration Digoxin 125 mcg 11/28/24 19:05 11/28/24 20:19 Digoxin Tab 125 Mcg Tablet PO 125 mcg QAM LUZ MARIA Administration Ezetimibe 10 mg 11/28/24 22:00 11/28/24 23:07 Ezetimibe 10 Mg Tablet PO 10 mg QHS LUZ MARIA Administration Sodium Chloride 1,000 mls @ 75 mls/hr 11/28/24 16:35 11/29/24 06:19 Normal Saline Iv IV CONT 125 mls/hr .[id number] LUZ MARIA Administration Morphine Sulfate 2 mg 11/28/24 16:31 Morphine Sulfate (*Crx) 2 Mg/Ml Inj IV PUSH Q2H PRN Pain Rated 7-10 Nebivolol 10 mg 11/28/24 19:00 11/28/24 20:19 Nebivolol Hcl 5 Mg Tablet PO 10 mg QAM LUZ MARIA Administration Sacubitril/Valsartan 1 tab 11/28/24 21:00 11/29/24 09:22 Sacubitril/Valsartan 12-13 Mg Tablet PO 1 tab Q12HR LUZ MARIA Administration Simvastatin 20 mg 11/28/24 22:00 11/28/24 23:07 Simvastatin 20 Mg Tablet PO 20 mg QHS LUZ MARIA Administration Radiology Results: ITS Impressions Head CT 11/28/24 14:46 IMPRESSION: No acute intracranial process. Chest X-Ray 11/28/24 14:57 IMPRESSION: No acute cardiopulmonary process. Ankle X-Ray 11/28/24 14:58 IMPRESSION: Bimalleolar right ankle fracture. Labs Labs: Laboratory Results - last 24 hr 11/28/24 11/28/24 11/29/24 14:05 18:06 00:07 WBC 9.7 RBC 3.49 L Hgb 10.2 L Hct 32.2 L MCV 92.3 MCH 29.2 MCHC 31.7 L RDW 14.3 Plt Count 234 MPV 10.2 Immature Gran % (Auto) 0.7 H Neut % (Auto) 87.7 H Lymph % (Auto) 4.0 L [place] % (Auto) 7.1 Eos % (Auto) 0.0 Baso % (Auto) 0.5 Lymph # (Auto) 0.39 L [place] # (Auto) 0.7 H Eos # (Auto) 0.0 Baso # (Auto) 0.1 Abs Immat Gran (auto) 0.07 H Absolute Neuts (auto) 8.5 H Absolute Nucleated RBC 0.000 Nucleated RBC % 0.0 PT 14.5 INR 1.1 Sodium 140 Potassium 4.3 Chloride 106 Carbon Dioxide 20 L Anion Gap 14 H BUN 30 H Creatinine 1.10 H Estim Creat Clear Calc 35 Estimated GFR 48 L Glucose 234 H POC Capillary Glucose 180 H 193 H Calcium 8.9 Magnesium Total Bilirubin 0.5 AST 43 H ALT 51 H Alkaline Phosphatase 89 Troponin I < 0.012 Total Protein 7.0 Albumin 4.0 11/29/24 11/29/24 11/29/24 05:51 05:56 11:38 WBC RBC Hgb Hct MCV MCH MCHC RDW Plt Count MPV Immature Gran % (Auto) Neut % (Auto) Lymph % (Auto) [place] % (Auto) Eos % (Auto) Baso % (Auto) Lymph # (Auto) [place] # (Auto) Eos # (Auto) Baso # (Auto) Abs Immat Gran (auto) Absolute Neuts (auto) Absolute Nucleated RBC Nucleated RBC % PT INR Sodium 138 Potassium 4.0 Chloride 109 H Carbon Dioxide 21 L Anion Gap 8 BUN 24 H Creatinine 1.03 H Estim Creat Clear Calc 37 Estimated GFR 52 L Glucose 160 H POC Capillary Glucose Calcium 8.6 8.5 Magnesium 1.9 1.9 Total Bilirubin 0.3 AST 80 H ALT 74 H Alkaline Phosphatase 108 Troponin I Total Protein 6.0 L Albumin 3.5 11/29/24 12:52 WBC RBC Hgb Hct MCV MCH MCHC RDW Plt Count MPV Immature Gran % (Auto) Neut % (Auto) Lymph % (Auto) [place] % (Auto) Eos % (Auto) Baso % (Auto) Lymph # (Auto) [place] # (Auto) Eos # (Auto) Baso # (Auto) Abs Immat Gran (auto) Absolute Neuts (auto) Absolute Nucleated RBC Nucleated RBC % PT INR Sodium Potassium Chloride Carbon Dioxide Anion Gap BUN Creatinine Estim Creat Clear Calc Estimated GFR Glucose POC Capillary Glucose 129 H Calcium Magnesium Total Bilirubin AST ALT Alkaline Phosphatase Troponin I Total Protein Albumin Quality VTE Prophylaxis VTE prophylaxis: mechanical ordered and pharmacologic ordered
[2024-11-29] MEDS: DIGOXIN TAB 125 MCG TABLET PO (14:58)
[2024-11-29] MEDS: NEBIVOLOL HCL 5 MG TABLET 10 MG PO (14:58)
[2024-11-29 18:57] LABS: Glucose Point of Care 146 mg/dl (65-105)
[2024-11-29] MEDS: SIMVASTATIN 20 MG TABLET PO (21:42)
[2024-11-29] MEDS: EZETIMIBE 10 MG TABLET PO (21:43)
[2024-11-30] VITALS (16 sets, daily range): BP systolic 122–148; BP diastolic 56–65; PULSE 59–64; RESP 12–18; TEMP 36.6–36.8; O2SAT 99–100; BMI 21.9
[2024-11-30 00:04] LABS: Alanine Aminotransferase 79 U/L (6-35); Albumin Level 3.3 g/dL (3.5-5.1); Alkaline Phosphatase 104 U/L (38-126); Anion Gap 9 mmol/L (4-12); Aspartate Amino Transferase 71 U/L (14-36); Bilirubin,Total 0.4 mg/dL (0.2-1.3); Blood Urea Nitrogen 20 mg/dL (7-17); Calcium 8.3 mg/dL (8.4-10.2); Carbon Dioxide 21 mmol/L (22-30); Chloride 107 mmol/L (98-107); Estimated CRCL calculation 40 ml/min; Estimated Glomerular Filt Rate 57; Glucose 154 mg/dL (65-110); Magnesium 1.8 mg/dL (1.6-2.3); Phosphorus 2.7 mg/dL (2.5-4.5); Potassium 3.5 mmol/L (3.4-5.0); Sodium 137 mmol/L (137-145)
--- NOTE | 2024-11-30 00:18 | PC.NURSE ---
Patient had a 9 beat run of polymorphic v-tach, HR 117, at 2254 - see chart for a print out. RN assessed patient and found patient had slept through the event. Sunita Jain was notified and orders for labs were placed. After labs resulted, RN called Dr. Mckenzie at [phone] with an update and that [facility] called & stated no bed at this time but patient is priority to transfer, no new orders.
[2024-11-30 04:58] LABS: Hematocrit 30.6 % (37.0-47.0); Mean Corpuscular HGB Conc 32.7 g/dl (32-36); Mean Corpuscular Hemoglobin 29.4 pg (26-34); Mean Platelet Volume 10.4 fl (7.4-10.4); Platelet Count Result 217 k/mm3 (150-375); Red Cell Distribution Width 13.9 % (11.5-14.5); White Blood Count 11.5 K/mm3 (4.5-10.0)
[2024-11-30 05:18] LABS: Anion Gap 11 mmol/L (4-12); Blood Urea Nitrogen 18 mg/dL (7-17); Calcium 8.3 mg/dL (8.4-10.2); Carbon Dioxide 21 mmol/L (22-30); Chloride 106 mmol/L (98-107); Estimated CRCL calculation 39 ml/min; Estimated Glomerular Filt Rate 56; Glucose 146 mg/dL (65-110); Magnesium 1.8 mg/dL (1.6-2.3); Potassium 3.4 mmol/L (3.4-5.0); Sodium 138 mmol/L (137-145)
[2024-11-30 06:38] LABS: Glucose Point of Care 140 mg/dl (65-105)
[2024-11-30] MEDS: SODIUM CHLORIDE 0.9% IV 1,000 ML 125 ML IV CONT (08:39)
[2024-11-30] MEDS: BUMETANIDE 1 MG TABLET 2 MG PO (08:41)
[2024-11-30] MEDS: NEBIVOLOL HCL 5 MG TABLET 10 MG PO (08:41)
[2024-11-30] MEDS: SACUBITRIL/VALSARTAN 12-13 MG TABLET 1 TAB PO ×2 (08:41→20:42)
[2024-11-30] MEDS: APIXABAN 5 MG TABLET PO ×2 (08:41→20:42)
[2024-11-30] MEDS: DIGOXIN TAB 125 MCG TABLET PO (08:41)
[2024-11-30] MEDS: POTASSIUM CHLORIDE 20 MEQ PACKET (FOR LIQUID) 40 MEQ PO (09:19)
--- NOTE | 2024-11-30 09:38 | P.CONOP_ITS ---
Assessment and Plan Assessment and plan (1) Closed right ankle fracture: Qualifiers: Encounter type: initial encounter Qualified Code(s): S82.891A - Other fracture of right lower leg, initial encounter for closed fracture Code(s): S82.891A - Other fracture of right lower leg, initial encounter for closed fracture Status: Acute Plan The patient is a 80-year-old female who presented to [facility] on November for a syncopal episode with subsequent cardiac arrest. The patient was traveling with her from [place] to [place], back home where she lives in [place]. They vacationed in [place] for two months out of the year. They were completing their two-month vacation in [place]. They've been doing this for 13 years. They stopped for gas at a local gas station. The patient essentially lost consciousness in the bathroom. Her discovered her on the floor, at which time he had multiple people in the gas station assisting them. He brought her to an urgent care center to tell them to document that she had a cardiac arrest. They performed a chest compression and then subsequently transferred her to [facility]. While at [facility], she was diagnosed with a minimally displaced right ankle bimalleal, or ankle fracture. I reviewed the x-rays, and the x-rays show no evidence of widening of the medial joint space. The patient reports no pain into the hips, no pain into the knees and both extremities, and no upper extremity pain. No shoulder pain, no elbow pain, and no contralateral leg pain. I was consulted to see this patient, and I saw the patient on November 30. And she was there with her . She was awake and alert, and I examined the patient's right ankle. It was in a well-placed and molded posterior splint. She had good capillary refill. No evidence of swelling or tenderness to the knee. No swelling or tenderness in the contralateral extremity. The bilateral picture and the examinations were unremarkable. No hip pain, no log room in the right lower extremity. The patient is scheduled to be transferred to [facility] for further evaluation by the electrophysiology department. She will then plan her trip back home after full evaluation at [facility]. My recommendation is for an unweighed burn in the right lower extremity. Low probability for surgical treatment of this fracture. Although follow-up within the next seven days for the pediatricians is necessary to determine stability of the right ankle. She has crutches with her, and she is acutely aware of her that he transferred to [facility] sometime later on today. I instructed the to make sure that the orthopedic services consulted while at [facility]. History of Present Illness HPI Consult date: 11/30/24 Consult reason: fracture Chief complaint: Right Ankle Pain, Fracture Narrative: The patient is a 80-year-old female who presented to [facility] on November the 2024 for a syncopal episode with subsequent cardiac arrest. The patient was traveling with her from [place] to [place], back home where she lives in [place]. They vacationed in [place] for two months out of the year. They were completing their two-month vacation in [place]. They've been doing this for 13 years. They stopped for gas at a local gas station. The patient essentially lost consciousness in the bathroom. Her discovered her on the floor, at which time he had multiple people in the gas station assisting them. He brought her to an urgent care center to tell them to document that she had a cardiac arrest. They performed a chest compression and then subsequently transferred her to [facility]. While at [facility], she was diagnosed with a minimally displaced right ankle bimalleal, or ankle fracture. I reviewed the x-rays, and the x-rays show no evidence of widening of the medial joint space. The patient reports no pain into the hips, no pain into the knees and both extremities, and no upper extremity pain. No shoulder pain, no elbow pain, and no contralateral leg pain. I was consulted to see this patient, and I saw the patient on November 30. And she was there with her . She was awake and alert, and I examined the patient's right ankle. It was in a well-placed and molded posterior splint. She had good capillary refill. No evidence of swelling or tenderness to the knee. No swelling or tenderness in the contralateral extremity. The bilateral picture and the examinations were unremarkable. No hip pain, no log room in the right lower extremity. The patient is scheduled to be transferred to [facility] for further evaluation by the electrophysiology department. She will then plan her trip back home after full evaluation at [facility]. My recommendation is for an unweighed burn in the right lower extremity. Low probability for surgical treatment of this fracture. Although follow-up within the next seven days for the pediatricians is necessary to determine stability of the right ankle. She has crutches with her, and she is acutely aware of her that he transferred to [facility] sometime later on today. I instructed the to make sure that the orthopedic services consulted while at [facility]. Review of Systems 2 Constitutional: Constitutional: Reports as per HPI Eyes: Eyes: Reports as per HPI ENT: Reports system reviewed and no additional complaints, except as documented Cardiovascular: Cardiovascular: Reports as per HPI and Reports no additional cardiovascular complaints Respiratory: Respiratory: Reports as per HPI and Reports no additional respiratory complaints Gastrointestinal: Gastrointestinal: Reports as per HPI and Reports no additional gastrointestinal complaints Genitourinary: Genitourinary: Reports as per HPI Musculoskeletal: Musculoskeletal: Reports as per HPI [facility] Past Medical History Medical History (Updated 11/30/24 @ 09:49 by Hieu Roca MD) Pacemaker Afib Social History Social History Smoking status: Never smoker Second hand tobacco smoke exposure: No Alcohol intake: former Substance use: never Substance use type: does not use Last use: over 1 year ago Do You Feel Safe in your Home?: Yes Lack of Transportation: No Lack of Food: Never True Current Housing: I Have Housing Concerned About Future Housing: No Difficulty Paying Gas/Electric Bills: No Difficulty Paying for Meds: No Currently Unemployed: No Education: Decline to Answer Difficulty w/ Childcare or Family Care: No Spiritual care concerns: No Meds Home Medications and Allergies Home Medications ?Medication ?Instructions ?Recorded ?Confirmed ?Type apixaban 5 mg tablet (Eliquis) 5 mg PO Q12H afib 11/28/24 11/28/24 History bumetanide 1 mg tablet 2 mg PO QAM [facility] 11/28/24 11/28/24 History bumetanide 2 mg tablet 2 mg PO QAM 11/28/24 11/28/24 History digoxin 125 mcg (0.125 mg) tablet 125 mcg PO QAM [facility] 11/28/24 11/28/24 History ezetimibe 10 mg tablet 10 mg PO QHS hypercholesterolemia 11/28/24 11/28/24 History glipizide 5 mg tablet 5 mg PO BID diabetes type 2 11/28/24 11/28/24 History metformin 500 mg tablet 1,000 mg PO BID diabetes type 2 11/28/24 11/28/24 History nebivolol 10 mg tablet 10 mg PO QAM 11/28/24 11/28/24 History sacubitril 24 mg-valsartan 26 mg 0.5 tablet PO BID chf 11/28/24 11/28/24 History tablet (Entresto) simvastatin 20 mg tablet 20 mg PO QHS 11/28/24 11/28/24 History Allergies Allergy/AdvReac Type Severity Reaction Status Date / Time Penicillins Allergy Unknown Unknown Verified 11/28/24 13:25 Vital Signs Vital Signs - 24 hr 11/29/24 10:00 11/29/24 12:00 11/29/24 12:00 Temperature 36.8 C Pulse Rate 60 60 60 Respiratory Rate 16 Blood Pressure 138/54 L Pulse Oximetry 100 Oxygen Delivery 11/29/24 14:00 11/29/24 15:26 11/29/24 16:00 Temperature 37.0 C Pulse Rate 60 59 L Respiratory Rate 16 Blood Pressure 153/51 H Pulse Oximetry 100 Oxygen Delivery Room Air 11/29/24 16:00 11/29/24 18:00 11/29/24 20:00 Temperature 36.9 C Pulse Rate 60 60 61 Respiratory Rate 16 Blood Pressure 149/65 H Pulse Oximetry 100 Oxygen Delivery 11/29/24 20:00 11/29/24 21:40 11/29/24 22:00 Temperature Pulse Rate 60 60 Respiratory Rate Blood Pressure Pulse Oximetry Oxygen Delivery Room Air 11/29/24 22:54 11/30/24 00:00 11/30/24 00:00 Temperature 36.6 C Pulse Rate 117 H 64 60 Respiratory Rate 16 Blood Pressure 148/64 H Pulse Oximetry 100 Oxygen Delivery 11/30/24 00:00 11/30/24 02:00 11/30/24 03:32 Temperature 36.8 C Pulse Rate 60 60 Respiratory Rate 16 Blood Pressure 147/65 H Pulse Oximetry 99 Oxygen Delivery Room Air 11/30/24 04:00 11/30/24 04:30 11/30/24 06:00 Temperature Pulse Rate 60 60 Respiratory Rate Blood Pressure Pulse Oximetry Oxygen Delivery Room Air 11/30/24 07:48 11/30/24 08:00 11/30/24 08:00 Temperature 36.8 C Pulse Rate 60 60 Respiratory Rate 12 Blood Pressure 140/60 Pulse Oximetry 100 Oxygen Delivery Room Air Exam 2 Narrative: Exam of the patient's right ankle shows that it is in a well-padded posterior splint, has good capillary refill. No pain to the hips on log rolling, no swelling, tenderness, or deformity of the right knee or of the left knee, and no swelling, tenderness, or deformity to the left ankle. Bilateral upper extremities are unremarkable, with good range of motion and no pain with active range of motion. Results Labs 11/30/24 04:36 11/30/24 04:36 Labs: Abnormal lab results 11/29/24 11/29/24 11/29/24 Range/Units 12:52 18:06 23:40 WBC (4.5-10.0) K/mm3 RBC (4.2-5.4) M/mm3 Hgb (12.0-15.0) g/dL Hct (37.0-47.0) % Carbon Dioxide 21 L (22-30) mmol/L BUN 20 H (7-17) mg/dL Estimated GFR 57 L (59 - ) Glucose 154 H (65-110) mg/dL POC Capillary Glucose 129 H 146 H (65-105) mg/dl Calcium 8.3 L (8.4-10.2) mg/dL AST 71 H (14-36) U/L ALT 79 H (6-35) U/L Total Protein 6.0 L (6.3-8.2) g/dL Albumin 3.3 L (3.5-5.1) g/dL 11/30/24 11/30/24 Range/Units 04:36 06:12 WBC 11.5 H (4.5-10.0) K/mm3 RBC 3.40 L (4.2-5.4) M/mm3 Hgb 10.0 L (12.0-15.0) g/dL Hct 30.6 L (37.0-47.0) % Carbon Dioxide 21 L (22-30) mmol/L BUN 18 H (7-17) mg/dL Estimated GFR 56 L (59 - ) Glucose 146 H (65-110) mg/dL POC Capillary Glucose 140 H (65-105) mg/dl Calcium 8.3 L (8.4-10.2) mg/dL AST (14-36) U/L ALT (6-35) U/L Total Protein (6.3-8.2) g/dL Albumin (3.5-5.1) g/dL H & H 11/28/24 11/30/24 Range/Units 14:05 04:36 Hgb 10.2 L 10.0 L (12.0-15.0) g/dL Hct 32.2 L 30.6 L (37.0-47.0) % Coagulation 11/28/24 Range/Units 14:05 INR 1.1 All other labs normal.
--- NOTE | 2024-11-30 11:43 | P.PNCA_ITS ---
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 b.i.d. and nebivolol 10 mg p.o. daily -euvolemic on Bumex 2 mg p.o. daily Paroxysmal atrial fibrillation -currently on Eliquis and digoxin Hyperlipidemia -continue simvastatin Subjective Date/time seen: 11/30/24 11:43 Interval history: Overall she feels well without any chest pain or shortness breath. Review of Systems Cardiovascular: Cardiovascular: Reports as per HPI Respiratory: Respiratory: Reports as per HPI Exam Const: General: comfortable HENMT: Mouth: Yes moist mucous membranes Eyes: EOM: EOMs intact bilaterally Neck: Neck: no JVD Resp: Effort & Inspection: normal respiratory effort Auscultation: clear to auscultation bilaterally Cardio: Rate: regular rate Rhythm: regular rhythm Extrem: Other: Right leg wrapped in is bandaged in immobility device Objective Data Vital Signs Vital Signs: Vital Signs - 24 hr 11/29/24 12:00 11/29/24 12:00 11/29/24 14:00 Temperature 36.8 C Pulse Rate 60 60 60 Respiratory Rate 16 Blood Pressure 138/54 L Pulse Oximetry 100 Oxygen Delivery 11/29/24 15:26 11/29/24 16:00 11/29/24 16:00 Temperature 37.0 C Pulse Rate 59 L 60 Respiratory Rate 16 Blood Pressure 153/51 H Pulse Oximetry 100 Oxygen Delivery Room Air 11/29/24 18:00 11/29/24 20:00 11/29/24 20:00 Temperature 36.9 C Pulse Rate 60 61 60 Respiratory Rate 16 Blood Pressure 149/65 H Pulse Oximetry 100 Oxygen Delivery 11/29/24 21:40 11/29/24 22:00 11/29/24 22:54 Temperature Pulse Rate 60 117 H Respiratory Rate Blood Pressure Pulse Oximetry Oxygen Delivery Room Air 11/30/24 00:00 11/30/24 00:00 11/30/24 00:00 Temperature 36.6 C Pulse Rate 64 60 Respiratory Rate 16 Blood Pressure 148/64 H Pulse Oximetry 100 Oxygen Delivery Room Air 11/30/24 02:00 11/30/24 03:32 11/30/24 04:00 Temperature 36.8 C Pulse Rate 60 60 60 Respiratory Rate 16 Blood Pressure 147/65 H Pulse Oximetry 99 Oxygen Delivery 11/30/24 04:30 11/30/24 06:00 11/30/24 07:48 Temperature 36.8 C Pulse Rate 60 60 Respiratory Rate 12 Blood Pressure 140/60 Pulse Oximetry 100 Oxygen Delivery Room Air 11/30/24 08:00 11/30/24 08:00 11/30/24 11:35 Temperature 36.6 C Pulse Rate 60 60 Respiratory Rate 16 Blood Pressure 132/60 Pulse Oximetry 100 Oxygen Delivery Room Air Intake/Output Intake/Output: Intake & Output 11/27/24 11/28/24 11/29/24 11/30/24 23:59 23:59 23:59 23:59 Intake Total 1000 3150 1240 Output Total 1350 450 Balance 1000 1800 790 Meds/Results Medications: Active Medications Generic Name Dose Route Start Last Admin Trade Name Freq PRN Reason Stop Dose Admin Acetaminophen 650 mg 11/28/24 16:31 Acetaminophen 325 Mg Tablet PO Q4H PRN Mild Pain (1-3) or Fever Hydrocodone Bitart/Acetaminophen 1 tab 11/28/24 16:31 Hydrocodone/Acetaminophen (*Crx) 5-325 Mg Tablet PO Q4H PRN Pain Rated 4-6 Apixaban 5 mg 11/28/24 21:53 11/30/24 08:41 Apixaban 5 Mg Tablet PO 5 mg Q12HR LUZ MARIA Administration Bumetanide 2 mg 11/29/24 09:00 11/30/24 08:41 Bumetanide 1 Mg Tablet PO 2 mg QAM LUZ MARIA Administration Digoxin 125 mcg 11/28/24 19:05 11/30/24 08:41 Digoxin Tab 125 Mcg Tablet PO 125 mcg QAM LUZ MARIA Administration Ezetimibe 10 mg 11/28/24 22:00 11/29/24 21:43 Ezetimibe 10 Mg Tablet PO 10 mg QHS LUZ MARIA Administration Sodium Chloride 1,000 mls @ 75 mls/hr 11/28/24 16:35 11/30/24 08:39 Normal Saline Iv IV CONT 125 mls/hr .[id number] LUZ MARIA Administration Morphine Sulfate 2 mg 11/28/24 16:31 Morphine Sulfate (*Crx) 2 Mg/Ml Inj IV PUSH Q2H PRN Pain Rated 7-10 Nebivolol 10 mg 11/28/24 19:00 11/30/24 08:41 Nebivolol Hcl 5 Mg Tablet PO 10 mg QAM LUZ MARIA Administration Sacubitril/Valsartan 1 tab 11/28/24 21:00 11/30/24 08:41 Sacubitril/Valsartan 12-13 Mg Tablet PO 1 tab Q12HR LUZ MARIA Administration Simvastatin 20 mg 11/28/24 22:00 11/29/24 21:42 Simvastatin 20 Mg Tablet PO 20 mg QHS LUZ MARIA Administration Radiology Results: ITS Impressions Head CT 11/28/24 14:46 IMPRESSION: No acute intracranial process. Chest X-Ray 11/28/24 14:57 IMPRESSION: No acute cardiopulmonary process. Ankle X-Ray 11/28/24 14:58 IMPRESSION: Bimalleolar right ankle fracture. Labs Labs: Laboratory Results - last 24 hr 11/29/24 11/29/24 11/29/24 11:38 12:52 18:06 WBC RBC Hgb Hct MCV MCH MCHC RDW Plt Count MPV Sodium Potassium Chloride Carbon Dioxide Anion Gap BUN Creatinine Estim Creat Clear Calc Estimated GFR Glucose POC Capillary Glucose 129 H 146 H Calcium 8.5 Phosphorus Magnesium 1.9 Total Bilirubin AST ALT Alkaline Phosphatase Total Protein Albumin 11/29/24 11/30/24 11/30/24 23:40 04:36 06:12 WBC 11.5 H RBC 3.40 L Hgb 10.0 L Hct 30.6 L MCV 90.0 MCH 29.4 MCHC 32.7 RDW 13.9 Plt Count 217 MPV 10.4 Sodium 137 138 Potassium 3.5 3.4 Chloride 107 106 Carbon Dioxide 21 L 21 L Anion Gap 9 11 BUN 20 H 18 H Creatinine 0.95 0.97 Estim Creat Clear Calc 40 39 Estimated GFR 57 L 56 L Glucose 154 H 146 H POC Capillary Glucose 140 H Calcium 8.3 L 8.3 L Phosphorus 2.7 Magnesium 1.8 1.8 Total Bilirubin 0.4 AST 71 H ALT 79 H Alkaline Phosphatase 104 Total Protein 6.0 L Albumin 3.3 L
[2024-11-30 11:53] LABS: Glucose Point of Care 205 mg/dl (65-105)
--- NOTE | 2024-11-30 12:15 | P.PNIM_ITS ---
Progress Note: A&P Assessment and Plan (1) V tach: Code(s): I47.20 - Ventricular tachycardia, unspecified Status: Acute Assessment and Plan: Likely secondary to not tolerating cardiac medications due to vomiting Cardiology on board continue Bumex, digoxin, Bystolic Pacemaker interrogated, report in paper chart tele monitoring replet K and Mg as needed plan for Echo and transfer to [facility] when bed available for EP eval. (2) Acute dehydration: Code(s): E86.0 - Dehydration Status: Acute Assessment and Plan: IV fluids for hydration (3) Syncope: Qualifiers: Syncope type: vasovagal syncope Qualified Code(s): R55 - Syncope and collapse Code(s): R55 - Syncope and collapse Status: Acute Assessment and Plan: Likely secondary to dehydration and V-tach See above (4) CHF (congestive heart failure): Code(s): I50.9 - Heart failure, unspecified Status: Acute Assessment and Plan: Continue Bumex (5) Afib: Code(s): I48.91 - Unspecified atrial fibrillation Status: Acute Assessment and Plan: Continue Bystolic and Eliquis (6) Ankle fracture, right: Code(s): S82.891A - Other fracture of right lower leg, initial encounter for closed fracture Status: Acute Assessment and Plan: orthopedic team on board. plan for follow up as outpatient Subjective Date/time seen: 11/30/24 12:15 Interval history: per HPi: 78-year-old female presents the hospital with syncope. Patient states that she was having nausea and vomiting for a few days while traveling across country and was unable to take her cardiac medications. Patient states that she went to urgent care and right before she left she had passed out. They were unable to feel pulses they started CPR the patient had left CPR, patient was alert and oriented without respiratory distress. And was presented to the hospital. Patient's pacemaker was interrogated with possible V-tach at the rate of 220 for less than a minute. Patient states that she has no complaints at this time. And she plans on continue in a cross-country tomorrow. She states that once she gets some fluid in her and her cardiac medications she will be fine. Patient educated that she should speak with Cardiology for planning on leaving as she may need more of a cardiology workup been just starting home meds. Patient denies nausea or vomiting at this time. 11/29/24 Patient was seen examined at bedside. She has been with appear denies any chest pain, shortness a breath, abdominal pain, nausea vomiting. Nausea vomiting and diarrhea improving Cardiology team on board. Will follow recommendation X-ray of right ankle showed fracture. orthopedic team has been consulted. 11/30/24 Patient was seen and examined at bedside. she is feeling fine denies any chest pain, sob , abd pain, nausea or vomiting. orthopedic team on board. follow up as outpatient cardiology team on board. plan for Echo and transfer to [facility] when bed available for EP eval. Review of Systems Review of Systems: 12 systems were reviewed and are negativ e except for as per HPI. Exam Narrative: General: well appearing, appears stated age. HEENT: normocephalic, atraumatic. Mucous membranes moist. bilateral sclera anicteric, no conjunctival injection. Neck supple without JVD, lymphadenopathy, or bruit. Respiratory: clear to ascultation bilaterally. No rales/rhonic/wheezes. Cardiovascular: Regular rate and rhythm, normal S1-S2 upon ascultation. No murmurs, rubs, or clicks. PMI is nondisplaced, capillary refill less than 3 second. Abdomen: Soft, round, no pulsatile masses, nondistended and nontender. No rebound, no guarding. No CVA tenderness, no hepatosplenomegaly. Bowel sounds present to all four quadrants. No high pitch or tinkling sounds, resonant to percussion. Extremities: No cyanosis, clubbing, or edema present. Pulses are palpable 2/2. Active ROM to all four extremities. Neuro: Alert and orientated x 4. PERRLA. Cranial nerves 2-12 intact without focal deficit. Skin: Warm, dry, and intact, without rash, erythema, or lesion. Psych: pleasant, cooperative, normal speech, normal affect, no hallucinations, no dysarthia Objective Data Vital Signs Vital Signs: Vital Signs - 24 hr 11/29/24 14:00 11/29/24 15:26 11/29/24 16:00 Temperature 98.6 F Pulse Rate 60 59 L Respiratory Rate 16 Blood Pressure 153/51 H Pulse Oximetry 100 Oxygen Delivery Room Air 11/29/24 16:00 11/29/24 18:00 11/29/24 20:00 Temperature 98.5 F Pulse Rate 60 60 61 Respiratory Rate 16 Blood Pressure 149/65 H Pulse Oximetry 100 Oxygen Delivery 11/29/24 20:00 11/29/24 21:40 11/29/24 22:00 Temperature Pulse Rate 60 60 Respiratory Rate Blood Pressure Pulse Oximetry Oxygen Delivery Room Air 11/29/24 22:54 11/30/24 00:00 11/30/24 00:00 Temperature 97.8 F Pulse Rate 117 H 64 60 Respiratory Rate 16 Blood Pressure 148/64 H Pulse Oximetry 100 Oxygen Delivery 11/30/24 00:00 11/30/24 02:00 11/30/24 03:32 Temperature 98.2 F Pulse Rate 60 60 Respiratory Rate 16 Blood Pressure 147/65 H Pulse Oximetry 99 Oxygen Delivery Room Air 11/30/24 04:00 11/30/24 04:30 11/30/24 06:00 Temperature Pulse Rate 60 60 Respiratory Rate Blood Pressure Pulse Oximetry Oxygen Delivery Room Air 11/30/24 07:48 11/30/24 08:00 11/30/24 08:00 Temperature 98.3 F Pulse Rate 60 60 Respiratory Rate 12 Blood Pressure 140/60 Pulse Oximetry 100 Oxygen Delivery Room Air 11/30/24 10:00 11/30/24 11:35 11/30/24 11:54 Temperature 97.8 F Pulse Rate 60 60 Respiratory Rate 16 Blood Pressure 132/60 Pulse Oximetry 100 Oxygen Delivery Room Air 11/30/24 11:54 Temperature Pulse Rate 60 Respiratory Rate Blood Pressure Pulse Oximetry Oxygen Delivery Intake/Output Intake/Output: Intake & Output 11/27/24 11/28/24 11/29/24 11/30/24 23:59 23:59 23:59 23:59 Intake Total 1000 3150 1240 Output Total 1350 450 Balance 1000 1800 790 Meds/Results Medications: Active Medications Generic Name Dose Route Start Last Admin Trade Name Freq PRN Reason Stop Dose Admin Acetaminophen 650 mg 11/28/24 16:31 Acetaminophen 325 Mg Tablet PO Q4H PRN Mild Pain (1-3) or Fever Hydrocodone Bitart/Acetaminophen 1 tab 11/28/24 16:31 Hydrocodone/Acetaminophen (*Crx) 5-325 Mg Tablet PO Q4H PRN Pain Rated 4-6 Apixaban 5 mg 11/28/24 21:53 11/30/24 08:41 Apixaban 5 Mg Tablet PO 5 mg Q12HR LUZ MARIA Administration Bumetanide 2 mg 11/29/24 09:00 11/30/24 08:41 Bumetanide 1 Mg Tablet PO 2 mg QAM LUZ MARIA Administration Digoxin 125 mcg 11/28/24 19:05 11/30/24 08:41 Digoxin Tab 125 Mcg Tablet PO 125 mcg QAM LUZ MARIA Administration Ezetimibe 10 mg 11/28/24 22:00 11/29/24 21:43 Ezetimibe 10 Mg Tablet PO 10 mg QHS LUZ MARIA Administration Sodium Chloride 1,000 mls @ 75 mls/hr 11/28/24 16:35 11/30/24 08:39 Normal Saline Iv IV CONT 125 mls/hr .[id number] LUZ MARIA Administration Morphine Sulfate 2 mg 11/28/24 16:31 Morphine Sulfate (*Crx) 2 Mg/Ml Inj IV PUSH Q2H PRN Pain Rated 7-10 Nebivolol 10 mg 11/28/24 19:00 11/30/24 08:41 Nebivolol Hcl 5 Mg Tablet PO 10 mg QAM LUZ MARIA Administration Sacubitril/Valsartan 1 tab 11/28/24 21:00 11/30/24 08:41 Sacubitril/Valsartan 12-13 Mg Tablet PO 1 tab Q12HR LUZ MARIA Administration Simvastatin 20 mg 11/28/24 22:00 11/29/24 21:42 Simvastatin 20 Mg Tablet PO 20 mg QHS LUZ MARIA Administration Radiology Results: ITS Impressions Head CT 11/28/24 14:46 IMPRESSION: No acute intracranial process. Chest X-Ray 11/28/24 14:57 IMPRESSION: No acute cardiopulmonary process. Ankle X-Ray 11/28/24 14:58 IMPRESSION: Bimalleolar right ankle fracture. Labs Labs: Laboratory Results - last 24 hr 11/29/24 11/29/24 11/29/24 12:52 18:06 23:40 WBC RBC Hgb Hct MCV MCH MCHC RDW Plt Count MPV Sodium 137 Potassium 3.5 Chloride 107 Carbon Dioxide 21 L Anion Gap 9 BUN 20 H Creatinine 0.95 Estim Creat Clear Calc 40 Estimated GFR 57 L Glucose 154 H POC Capillary Glucose 129 H 146 H Calcium 8.3 L Phosphorus 2.7 Magnesium 1.8 Total Bilirubin 0.4 AST 71 H ALT 79 H Alkaline Phosphatase 104 Total Protein 6.0 L Albumin 3.3 L 11/30/24 11/30/24 11/30/24 04:36 06:12 11:50 WBC 11.5 H RBC 3.40 L Hgb 10.0 L Hct 30.6 L MCV 90.0 MCH 29.4 MCHC 32.7 RDW 13.9 Plt Count 217 MPV 10.4 Sodium 138 Potassium 3.4 Chloride 106 Carbon Dioxide 21 L Anion Gap 11 BUN 18 H Creatinine 0.97 Estim Creat Clear Calc 39 Estimated GFR 56 L Glucose 146 H POC Capillary Glucose 140 H 205 H Calcium 8.3 L Phosphorus Magnesium 1.8 Total Bilirubin AST ALT Alkaline Phosphatase Total Protein Albumin Quality VTE Prophylaxis VTE prophylaxis: mechanical ordered and pharmacologic ordered
[2024-11-30 16:16] LABS: Glucose Point of Care 215 mg/dl (65-105)
[2024-11-30] MEDS: SIMVASTATIN 20 MG TABLET PO (20:42)
[2024-11-30] MEDS: EZETIMIBE 10 MG TABLET PO (20:42)
[2024-11-30 21:13] LABS: Glucose Point of Care 194 mg/dl (65-105)
[2024-11-30] MEDS: SODIUM CHLORIDE 0.9% IV 1,000 ML 75 ML IV CONT (23:12)
[2024-12-01] VITALS (20 sets, daily range): BP systolic 104–132; BP diastolic 33–56; PULSE 55–60; RESP 16–20; TEMP 36.5–36.8; O2SAT 99–100
--- NOTE | 2024-12-01 | ECHO_ITS ---
Patient Info Name: Angela Sawyer Age: 78 years : 1945 Gender: Female Ht: 65 in Wt: 132 lbs BSA: 1.66 m2 HR: 60 bpm BP: 128 / 51 mmHg Heart Rhythm: Sinus Rhythm Technical Quality: Fair Exam Date: 12/01/2024 1:41 PM Exam Location: Echo Lab Patient Status: Inpatient Admit Date: 11/29/2024 Staff Ordering Physician: Mynor Romero MD Pediatric Critical Care Nurse: Amy Rai RDCS Attending Provider: Mynor Romero MD Exam Type: CA echo dop color flow w con Study Info Indications I49.9 - Cardiac arrhythmia, unspecified Complete two-dimensional, color flow and Doppler transthoracic echocardiogram is performed with contrast to opacify the left ventricle and to improve the deliniation of the left ventricle endocardial borders. Contrast/Agitated Saline Contrast/Ag. Saline: Definity Amount: 2.00 ml Administered By: Amy Rai RDCS Existing IV Access: Yes IV Access Condition: patent with no signs of infiltration Summary 1. Left ventricular chamber dimension is mildly enlarged. 2. Left ventricular systolic function is mildly reduced, estimated at 50-55%. 3. There is no increased left ventricular wall thickness. 4. The left ventricular diastolic function is abnormal. 5. The basal inferolateral wall is akinetic. 6. The basal anterolateral wall, and mid inferolateral wall are hypokinetic. 7. Left atrial chamber dimension is mildly enlarged. 8. There is moderate mitral valve regurgitation. 9. Mild pulmonary hypertension, estimated pulmonary arterial systolic pressure is 37 mmHg. 10. There is moderate tricuspid valve regurgitation. 11. There is mild pulmonic regurgitation. Left Ventricle Left ventricular chamber dimension is mildly enlarged. Left ventricular systolic function is mildly reduced, estimated at 50-55%. There is no increased left ventricular wall thickness. The left ventricular diastolic function is abnormal. The basal inferolateral wall is akinetic. The basal anterolateral wall, and mid inferolateral wall are hypokinetic. All other silva appear normal. Right Ventricle Right ventricular chamber dimension is normal. Right ventricular systolic function is normal. Left Atria Left atrial chamber dimension is mildly enlarged. Right Atria Right atrial chamber dimension is normal. Linear artifact in the right atrium suggestive of catheter(s), pacemaker lead(s), or ICD lead(s). Atrial Septum Intact interatrial septum visualized by color flow imaging. Aortic Valve The aortic valve is probable trileaflet. There is mild aortic valve sclerosis. There is no aortic valve stenosis. There is trace aortic valve regurgitation. Pulmonic Valve The pulmonic valve is normal. There is no pulmonic valve stenosis. There is mild pulmonic regurgitation. Mitral Valve The mitral valve has normal leaflets. There is no mitral valve stenosis. There is moderate mitral valve regurgitation. Tricuspid Valve The tricuspid valve leaflets are normal. There is no significant tricuspid valve stenosis. There is moderate tricuspid valve regurgitation. Mild pulmonary hypertension, estimated pulmonary arterial systolic pressure is 37 mmHg. Pericardium/Pleural The pericardium appears normal. There is no pericardial effusion. Inferior Vena Cava Normal inferior vena cava with <50% collapse upon inspiration consistent with elevated right atrial pressure, 10 mmHg. Aorta The aortic root size at the sinus of Valsalva is normal. Left Ventricular Outflow Tract Name Value Normal LVOT 2D LVOT Diameter 2.02 cm LVOT Doppler LVOT Peak Gradient 3 mmHg LVOT Mean Gradient 1 mmHg LVOT VTI 14.53 cm LVOT VTI/AV VTI Ratio 0.84 LVOT Stroke Volume 46.58 ml LVOT CO 2.75 l/min LVOT CI 1.66 L/min/m2 Pulmonic Valve Name Value Normal RVOT Doppler RVOT Peak Gradient 2 mmHg PV Doppler PV Peak Gradient 4 mmHg Mitral Valve Name Value Normal MV Doppler MV Decel [place] 430.58 cm/s2 MV PHT 0 s MV Area (PHT) 3.15 cm2 4.00-5.00 MV Diastolic Function MV E Peak Velocity 103.67 cm/s MV A Peak Velocity 2.07 cm/s MV E/A 50.15 MV Decel Time 0 s MV Annular TDI MV E/e' (Septal) 10.97 <=8.00 MV E/e' (Lateral) 15.69 <=8.00 MV E/e' (Average) 13.33 Tricuspid Valve Name Value Normal TV Regurgitation Doppler TR Peak Velocity 261.01 cm/s TR Peak Gradient 12 mmHg Estimated PAP/RSVP RA Pressure 10 mmHg <=5 PA Systolic Pressure 37 mmHg <36 RV Systolic Pressure 37 mmHg <36 Aorta Name Value Normal Ascending Aorta Ao Root Diameter (MM) 2.36 cm Ao Root Diam Index (MM) 1.42 cm/m2 Aortic Valve Name Value Normal AV Doppler AV Peak Velocity 119.05 cm/s AV Peak Gradient 6 mmHg AV Mean Gradient 3 mmHg AV VTI 17.35 cm AV Area (Cont Eq VTI) 2.69 cm2 >=3.00 AV Area (Cont Eq Rajan) 2.16 cm2 AV Regurgitation 2D LVOT Area 3.21 cm2 Ventricles Name Value Normal LV Dimensions 2D/MM IVS Diastolic Thickness (2D) 0.66 cm 0.60-1.00 LVID Diastole (2D) 5.29 cm 3.80-5.20 LVIW Diastolic Thickness (2D) 0.60 cm 0.60-0.90 LVID Systole (2D) 3.94 cm 2.20-3.50 LVOT Diameter 2.02 cm LV Mass (2D Cubed) 111.69 g 67.00-162.00 LV Mass Index (2D Cubed) 0.01 g/cm2 0.00-0.01 Relative Wall Thickness (2D) 0.23 LV Fractional Shortening/Ejection Fraction 2D/MM LV Fractional Shortening (2D) 25 % 27-45 LV EF (2D Teicholz) 50 % 54-74 LV Diastolic Volume (4C MOD) 113.23 ml LV EF (4C MOD) 61 % LV Diastolic Volume (2C MOD) 91.87 ml LV EF (2C MOD) 52 % LV Diastolic Volume (BP MOD) 102.81 ml 46.00-106.00 LV Diastolic Volume Index (BP MOD) 0.06 l/m2 0.03-0.06 LV Systolic Volume (BP MOD) 45.44 ml 14.00-42.00 LV Systolic Volume Index (BP MOD) 0.03 l/m2 0.01-0.02 LV EF (BP MOD) 56 % 54-74 LV Diastolic Length (4C) 7.81 cm LV Systolic Length (4C) 6.95 cm LV Stroke Volume (4C MOD) 69.37 ml Atria Name Value Normal LA Dimensions LA Dimension (MM) 4.15 cm 2.70-3.80 LA Volume (4C A-L) 79.34 ml LA Volume (BP A-L) 78.09 ml RA Dimensions RA Area (4C) 17.75 cm2 <=18.00 Wall Motion Scoring Wall Motion Scoring Index: 1.24 Report Signatures
[2024-12-01 04:31] LABS: Hematocrit 29.5 % (37.0-47.0); Hemoglobin 9.8 g/dL (12.0-15.0); Mean Corpuscular HGB Conc 33.2 g/dl (32-36); Mean Corpuscular Hemoglobin 29.3 pg (26-34); Mean Corpuscular Volume 88.1 fl (80-100); Platelet Count Result 221 k/mm3 (150-375); Red Blood Count 3.35 M/mm3 (4.2-5.4); Red Cell Distribution Width 13.7 % (11.5-14.5); White Blood Count 7.3 K/mm3 (4.5-10.0)
[2024-12-01 04:45] LABS: Anion Gap 7 mmol/L (4-12); Blood Urea Nitrogen 16 mg/dL (7-17); Calcium 8.2 mg/dL (8.4-10.2); Carbon Dioxide 24 mmol/L (22-30); Chloride 106 mmol/L (98-107); Estimated CRCL calculation 43 ml/min; Estimated Glomerular Filt Rate > 60; Glucose 142 mg/dL (65-110); Magnesium 1.7 mg/dL (1.6-2.3); Potassium 3.4 mmol/L (3.4-5.0); Sodium 137 mmol/L (137-145)
[2024-12-01 07:29] LABS: Glucose Point of Care 152 mg/dl (65-105)
[2024-12-01] MEDS: NEBIVOLOL HCL 5 MG TABLET 10 MG PO (09:04)
[2024-12-01] MEDS: BUMETANIDE 1 MG TABLET 2 MG PO (09:04)
[2024-12-01] MEDS: APIXABAN 5 MG TABLET PO ×2 (09:05→20:03)
[2024-12-01] MEDS: DIGOXIN TAB 125 MCG TABLET PO (09:05)
[2024-12-01] MEDS: SACUBITRIL/VALSARTAN 12-13 MG TABLET 1 TAB PO ×2 (09:05→20:03)
--- NOTE | 2024-12-01 09:43 | PC.NURSE ---
Pt with run of formerly [facility]. She was out of bed, using the commode with assistance. She felt light-headed and was assisted back to bed. Her blood pressure was 132/44, HR 60. Dr. Romero notified.
[2024-12-01] MEDS: POTASSIUM CHLORIDE 20 MEQ PACKET (FOR LIQUID) 40 MEQ PO (11:15)
[2024-12-01] MEDS: MAGNESIUM SULF 2 GM/WATER 50ML 2 GM/50 ML BAG IVPB (11:22)
[2024-12-01 11:35] LABS: Glucose Point of Care 184 mg/dl (65-105)
--- NOTE | 2024-12-01 11:43 | PM.PNCARD ---
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 She felt dizziness. -Will start her on amiodarone IV for arrhythmia suppression -Will order an echo -She is awaiting transfer to [place] for EP services Chronic systolic heart failure status post [employer]ATIONS [employer] P upgrade -continue Entresto 12-13 mg p.o. b.i.d. and nebivolol 10 mg p.o. daily -euvolemic on Bumex 2 mg p.o. daily Paroxysmal atrial fibrillation -currently on Eliquis and digoxin. However, with initiation of amiodarone will d/c digoxin to avoid interaction. Hyperlipidemia -continue simvastatin Subjective Date/time seen: 12/01/24 11:43 Interval history: Cardiology follow up visit She had a 20-25 beat run of VT this morning while transferring from the commode. She felt dizzy. Review of Systems Constitutional: Constitutional: Reports no additional constitutional complaints Eyes: Eyes: Reports no additional eye complaints ENT: Reports system reviewed and no additional complaints, except as documented Cardiovascular: Cardiovascular: Reports as per HPI and Reports no additional cardiovascular complaints Respiratory: Respiratory: Reports as per HPI and Reports no additional respiratory complaints Gastrointestinal: Gastrointestinal: Reports as per HPI Musculoskeletal: Musculoskeletal: Reports no additional musculoskeletal complaints Integumentary/Breasts: Skin/Breast: Reports system reviewed and no additional complaints, except as docu Neurologic: Reports system reviewed and no additional complaints, except as documented Endocrine: Endocrine: Reports no additional endocrine complaints Hematologic/Lymphatic: Hematologic/Lymphatic: Reports no additional hematologic/lymphatic complaints Allergic/Immunologic: Allergic/Immunologic: Reports no additional allergic/immunologic complaints Exam Const: General: comfortable and no acute distress Other: Very pleasant comfortable lady appearing her stated age alert and oriented in no distress of any kind at this time HENMT: Mouth: Yes moist mucous membranes Eyes: Sclera: sclerae normal EOM: EOMs intact bilaterally Neck: Neck: supple and no JVD Resp: Effort & Inspection: normal respiratory effort Auscultation: clear to auscultation bilaterally Cardio: Rate: regular rate Rhythm: regular rhythm Other: Grade 2/6 holosystolic EM best audible at the apex GI: Auscultation: normal bowel sounds Skin: General skin exam: normal color Neuro: Other: Alert and oriented x3 Extrem: General: normal to inspection Other: Right leg wrapped in is bandaged in immobility device Objective Data Vital Signs Vital Signs: Vital Signs - 24 hr 11/30/24 11:54 11/30/24 11:54 11/30/24 14:00 Temperature Pulse Rate 60 60 Respiratory Rate Blood Pressure Pulse Oximetry Oxygen Delivery Room Air 11/30/24 15:37 11/30/24 16:00 11/30/24 16:00 Temperature 36.6 C Pulse Rate 59 L 60 Respiratory Rate 14 Blood Pressure 122/56 L Pulse Oximetry 100 Oxygen Delivery Room Air 11/30/24 18:00 11/30/24 20:00 11/30/24 20:00 Temperature Pulse Rate 60 59 L Respiratory Rate 18 Blood Pressure 135/56 L Pulse Oximetry 99 Oxygen Delivery Room Air 11/30/24 20:00 11/30/24 22:00 12/01/24 00:00 Temperature Pulse Rate 60 60 60 Respiratory Rate 18 Blood Pressure 124/46 L Pulse Oximetry 100 Oxygen Delivery 12/01/24 00:00 12/01/24 00:00 12/01/24 02:00 Temperature Pulse Rate 60 60 Respiratory Rate Blood Pressure Pulse Oximetry Oxygen Delivery Room Air 12/01/24 04:00 12/01/24 04:00 12/01/24 04:00 Temperature Pulse Rate 60 60 Respiratory Rate 18 Blood Pressure 120/48 L Pulse Oximetry 100 Oxygen Delivery Room Air 12/01/24 06:00 12/01/24 07:53 12/01/24 08:55 Temperature 36.8 C Pulse Rate 60 60 60 Respiratory Rate 18 Blood Pressure 126/52 L 132/44 L Pulse Oximetry 99 99 Oxygen Delivery 12/01/24 09:04 12/01/24 09:05 Temperature Pulse Rate 60 60 Respiratory Rate Blood Pressure Pulse Oximetry Oxygen Delivery Intake/Output Intake/Output: Intake & Output 11/28/24 11/29/24 11/30/24 12/01/24 23:59 23:59 23:59 23:59 Intake Total 1000 3150 3145 640 Output Total 1350 1250 501 Balance 1000 1800 1895 139 Meds/Results Medications: Active Medications Generic Name Dose Route Start Last Admin Trade Name Freq PRN Reason Stop Dose Admin Acetaminophen 650 mg 11/28/24 16:31 Acetaminophen 325 Mg Tablet PO Q4H PRN Mild Pain (1-3) or Fever Hydrocodone Bitart/Acetaminophen 1 tab 11/28/24 16:31 Hydrocodone/Acetaminophen (*Crx) 5-325 Mg Tablet PO Q4H PRN Pain Rated 4-6 Apixaban 5 mg 11/28/24 21:53 12/01/24 09:05 Apixaban 5 Mg Tablet PO 5 mg Q12HR LUZ MARIA Administration Bumetanide 2 mg 11/29/24 09:00 12/01/24 09:04 Bumetanide 1 Mg Tablet PO 2 mg QAM LUZ MARIA Administration Digoxin 125 mcg 11/28/24 19:05 12/01/24 09:05 Digoxin Tab 125 Mcg Tablet PO 125 mcg QAM LUZ MARIA Administration Ezetimibe 10 mg 11/28/24 22:00 11/30/24 20:42 Ezetimibe 10 Mg Tablet PO 10 mg QHS LUZ MARIA Administration Sodium Chloride 1,000 mls @ 75 mls/hr 11/28/24 16:35 11/30/24 23:12 Normal Saline Iv IV CONT 75 mls/hr .[id number] LUZ MARIA Administration Morphine Sulfate 2 mg 11/28/24 16:31 Morphine Sulfate (*Crx) 2 Mg/Ml Inj IV PUSH Q2H PRN Pain Rated 7-10 Nebivolol 10 mg 11/28/24 19:00 12/01/24 09:04 Nebivolol Hcl 5 Mg Tablet PO 10 mg QAM LUZ MARIA Administration Sacubitril/Valsartan 1 tab 11/28/24 21:00 12/01/24 09:05 Sacubitril/Valsartan 12-13 Mg Tablet PO 1 tab Q12HR LUZ MARIA Administration Simvastatin 20 mg 11/28/24 22:00 11/30/24 20:42 Simvastatin 20 Mg Tablet PO 20 mg QHS LUZ MARIA Administration Radiology Results: ITS Impressions Head CT 11/28/24 14:46 IMPRESSION: No acute intracranial process. Chest X-Ray 11/28/24 14:57 IMPRESSION: No acute cardiopulmonary process. Ankle X-Ray 11/28/24 14:58 IMPRESSION: Bimalleolar right ankle fracture. Labs Labs: Laboratory Results - last 24 hr 11/30/24 11/30/24 11/30/24 11:50 16:13 20:39 WBC RBC Hgb Hct MCV MCH MCHC RDW Plt Count MPV Sodium Potassium Chloride Carbon Dioxide Anion Gap BUN Creatinine Estim Creat Clear Calc Estimated GFR Glucose POC Capillary Glucose 205 H 215 H 194 H Calcium Magnesium 12/01/24 12/01/24 12/01/24 04:21 07:25 11:27 WBC 7.3 RBC 3.35 L Hgb 9.8 L Hct 29.5 L MCV 88.1 MCH 29.3 MCHC 33.2 RDW 13.7 Plt Count 221 MPV 10.0 Sodium 137 Potassium 3.4 Chloride 106 Carbon Dioxide 24 Anion Gap 7 BUN 16 Creatinine 0.88 Estim Creat Clear Calc 43 Estimated GFR > 60 Glucose 142 H POC Capillary Glucose 152 H 184 H Calcium 8.2 L Magnesium 1.7 Quality VTE Prophylaxis VTE prophylaxis: mechanical ordered and pharmacologic ordered
--- NOTE | 2024-12-01 12:00 | P.PNIM_ITS ---
Progress Note: A&P Assessment and Plan (1) V tach: Code(s): I47.20 - Ventricular tachycardia, unspecified Status: Acute Assessment and Plan: Likely secondary to not tolerating cardiac medications due to vomiting Cardiology on board continue Bumex, digoxin, Bystolic Pacemaker interrogated, report in paper chart tele monitoring replet K and Mg as needed plan for Echo and transfer to [facility] when bed available for EP eval. (2) Acute dehydration: Code(s): E86.0 - Dehydration Status: Acute Assessment and Plan: IV fluids for hydration (3) Syncope: Qualifiers: Syncope type: vasovagal syncope Qualified Code(s): R55 - Syncope and collapse Code(s): R55 - Syncope and collapse Status: Acute Assessment and Plan: Likely secondary to dehydration and V-tach See above (4) CHF (congestive heart failure): Code(s): I50.9 - Heart failure, unspecified Status: Acute Assessment and Plan: Continue Bumex (5) Afib: Code(s): I48.91 - Unspecified atrial fibrillation Status: Acute Assessment and Plan: Continue Bystolic and Eliquis (6) Ankle fracture, right: Code(s): S82.891A - Other fracture of right lower leg, initial encounter for closed fracture Status: Acute Assessment and Plan: orthopedic team on board. plan for follow up as outpatient Subjective Date/time seen: 12/01/24 12:00 Interval history: per HPi: 78-year-old female presents the hospital with syncope. Patient states that she was having nausea and vomiting for a few days while traveling across country and was unable to take her cardiac medications. Patient states that she went to urgent care and right before she left she had passed out. They were unable to feel pulses they started CPR the patient had left CPR, patient was alert and oriented without respiratory distress. And was presented to the hospital. Patient's pacemaker was interrogated with possible V-tach at the rate of 220 for less than a minute. Patient states that she has no complaints at this time. And she plans on continue in a cross-country tomorrow. She states that once she gets some fluid in her and her cardiac medications she will be fine. Patient educated that she should speak with Cardiology for planning on leaving as she may need more of a cardiology workup been just starting home meds. Patient denies nausea or vomiting at this time. 11/29/24 Patient was seen examined at bedside. She has been with appear denies any chest pain, shortness a breath, abdominal pain, nausea vomiting. Nausea vomiting and diarrhea improving Cardiology team on board. Will follow recommendation X-ray of right ankle showed fracture. orthopedic team has been consulted. 11/30/24 Patient was seen and examined at bedside. she is feeling fine denies any chest pain, sob , abd pain, nausea or vomiting. orthopedic team on board. follow up as outpatient cardiology team on board. plan to transfer to [facility] when bed available for EP eval. 12/01/24 Patient was seen and examined at bedside. She is feeling fine. Denies any chest pain, shortness a breath, Abd pain, nausea vomiting. She had about 10 beats of V-tach this morning and was feeling dizzy during that episode. replete potassium. ordered Echo Review of Systems Review of Systems: 12 systems were reviewed and are negativ e except for as per HPI. Exam Narrative: General: well appearing, appears stated age. HEENT: normocephalic, atraumatic. Mucous membranes moist. bilateral sclera anicteric, no conjunctival injection. Neck supple without JVD, lymphadenopathy, or bruit. Respiratory: clear to ascultation bilaterally. No rales/rhonic/wheezes. Cardiovascular: Regular rate and rhythm, normal S1-S2 upon ascultation. No murmurs, rubs, or clicks. PMI is nondisplaced, capillary refill less than 3 second. Abdomen: Soft, round, no pulsatile masses, nondistended and nontender. No rebound, no guarding. No CVA tenderness, no hepatosplenomegaly. Bowel sounds present to all four quadrants. No high pitch or tinkling sounds, resonant to percussion. Extremities: No cyanosis, clubbing, or edema present. Pulses are palpable 2/2. R ankle in cast Neuro: Alert and orientated x 4. PERRLA. Cranial nerves 2-12 intact without foc al deficit. Skin: Warm, dry, and intact, without rash, erythema, or lesion. Psych: pleasant, cooperative, normal speech, normal affect, no hallucinations, no dysarthia Objective Data Vital Signs Vital Signs: Vital Signs - 24 hr 11/30/24 14:00 11/30/24 15:37 11/30/24 16:00 Temperature 97.8 F Pulse Rate 60 59 L Respiratory Rate 14 Blood Pressure 122/56 L Pulse Oximetry 100 Oxygen Delivery Room Air 11/30/24 16:00 11/30/24 18:00 11/30/24 20:00 Temperature Pulse Rate 60 60 59 L Respiratory Rate 18 Blood Pressure 135/56 L Pulse Oximetry 99 Oxygen Delivery 11/30/24 20:00 11/30/24 20:00 11/30/24 22:00 Temperature Pulse Rate 60 60 Respiratory Rate Blood Pressure Pulse Oximetry Oxygen Delivery Room Air 12/01/24 00:00 12/01/24 00:00 12/01/24 00:00 Temperature Pulse Rate 60 60 Respiratory Rate 18 Blood Pressure 124/46 L Pulse Oximetry 100 Oxygen Delivery Room Air 12/01/24 02:00 12/01/24 04:00 12/01/24 04:00 Temperature Pulse Rate 60 60 Respiratory Rate 18 Blood Pressure 120/48 L Pulse Oximetry 100 Oxygen Delivery Room Air 12/01/24 04:00 12/01/24 06:00 12/01/24 07:53 Temperature 98.2 F Pulse Rate 60 60 60 Respiratory Rate 18 Blood Pressure 126/52 L Pulse Oximetry 99 Oxygen Delivery 12/01/24 08:55 12/01/24 09:04 12/01/24 09:05 Temperature Pulse Rate 60 60 60 Respiratory Rate Blood Pressure 132/44 L Pulse Oximetry 99 Oxygen Delivery Intake/Output Intake/Output: Intake & Output 11/28/24 11/29/24 11/30/24 12/01/24 23:59 23:59 23:59 23:59 Intake Total 1000 3150 3145 640 Output Total 1350 1250 501 Balance 1000 1800 1895 139 Meds/Results Medications: Active Medications Generic Name Dose Route Start Last Admin Trade Name Freq PRN Reason Stop Dose Admin Acetaminophen 650 mg 11/28/24 16:31 Acetaminophen 325 Mg Tablet PO Q4H PRN Mild Pain (1-3) or Fever Hydrocodone Bitart/Acetaminophen 1 tab 11/28/24 16:31 Hydrocodone/Acetaminophen (*Crx) 5-325 Mg Tablet PO Q4H PRN Pain Rated 4-6 Apixaban 5 mg 11/28/24 21:53 12/01/24 09:05 Apixaban 5 Mg Tablet PO 5 mg Q12HR LUZ MARIA Administration Bumetanide 2 mg 11/29/24 09:00 12/01/24 09:04 Bumetanide 1 Mg Tablet PO 2 mg QAM LUZ MARIA Administration Ezetimibe 10 mg 11/28/24 22:00 11/30/24 20:42 Ezetimibe 10 Mg Tablet PO 10 mg QHS LUZ MARIA Administration Sodium Chloride 1,000 mls @ 75 mls/hr 11/28/24 16:35 11/30/24 23:12 Normal Saline Iv IV CONT 75 mls/hr .[id number] LUZ MARIA Administration Amiodarone HCl/Dextrose 150 mg in 100 mls @ 600 mls/hr 12/01/24 12:00 Nexterone 150 Mg/D5w 100 Ml IV CONT 12/01/24 12:09 .Q10M ONE 15 MG/MIN Amiodarone HCl/Dextrose 360 mg in 200 mls @ 33.333 mls/hr 12/01/24 12:11 Nexterone 360 Mg/D5w 200 Ml IV CONT 12/01/24 18:10 .Q6H ONE 1 MG/MIN Amiodarone HCl/Dextrose 360 mg in 200 mls @ 16.667 mls/hr 12/01/24 18:11 Nexterone 360 Mg/D5w 200 Ml IV CONT .Q12H LUZ MARIA 0.5 MG/MIN Morphine Sulfate 2 mg 11/28/24 16:31 Morphine Sulfate (*Crx) 2 Mg/Ml Inj IV PUSH Q2H PRN Pain Rated 7-10 Nebivolol 10 mg 11/28/24 19:00 12/01/24 09:04 Nebivolol Hcl 5 Mg Tablet PO 10 mg QAM LUZ MARIA Administration Sacubitril/Valsartan 1 tab 11/28/24 21:00 12/01/24 09:05 Sacubitril/Valsartan 12-13 Mg Tablet PO 1 tab Q12HR LUZ MARIA Administration Simvastatin 20 mg 11/28/24 22:00 11/30/24 20:42 Simvastatin 20 Mg Tablet PO 20 mg QHS LUZ MARIA Administration Radiology Results: ITS Impressions Head CT 11/28/24 14:46 IMPRESSION: No acute intracranial process. Chest X-Ray 11/28/24 14:57 IMPRESSION: No acute cardiopulmonary process. Ankle X-Ray 11/28/24 14:58 IMPRESSION: Bimalleolar right ankle fracture. Labs Labs: Laboratory Results - last 24 hr 11/30/24 11/30/24 12/01/24 16:13 20:39 04:21 WBC 7.3 RBC 3.35 L Hgb 9.8 L Hct 29.5 L MCV 88.1 MCH 29.3 MCHC 33.2 RDW 13.7 Plt Count 221 MPV 10.0 Sodium 137 Potassium 3.4 Chloride 106 Carbon Dioxide 24 Anion Gap 7 BUN 16 Creatinine 0.88 Estim Creat Clear Calc 43 Estimated GFR > 60 Glucose 142 H POC Capillary Glucose 215 H 194 H Calcium 8.2 L Magnesium 1.7 12/01/24 12/01/24 07:25 11:27 WBC RBC Hgb Hct MCV MCH MCHC RDW Plt Count MPV Sodium Potassium Chloride Carbon Dioxide Anion Gap BUN Creatinine Estim Creat Clear Calc Estimated GFR Glucose POC Capillary Glucose 152 H 184 H Calcium Magnesium Quality VTE Prophylaxis VTE prophylaxis: mechanical ordered and pharmacologic ordered
[2024-12-01] MEDS: PERFLUTREN LIPID MICROSPHERES 1.5 ML VIAL DILUTED TO 10 ML TOTAL VOLUME IV PUSH (14:20)
[2024-12-01] MEDS: AMIODARONE 150 MG/D5W 100 ML 150 MG/100 ML BAG 600 MG IV CONT (15:25)
--- NOTE | 2024-12-01 15:32 | IVDEFINITY ---
Prior to administration of IV Definity the patient was educated on the risks and benefits of the imaging enhancing agent including potential adverse side effects. The patient verbalized understanding. Allergies were verified. No exclusion criteria were identified and at least one of the following inclusion criteria were met: 1) physician request, 2) patient technically difficult to image (per the [place] guidelines of two or more segments not discernable within the apical view), or 3) questionable left ventricular function. ?
[2024-12-01] MEDS: AMIODARONE 360 MG/D5W 200 ML 360 MG/200 ML BAG 33.33 MG IV CONT (15:45)
[2024-12-01 15:57] LABS: Glucose Point of Care 180 mg/dl (65-105)
--- NOTE | 2024-12-01 19:03 | PM.TDS ---
Transfer Discharge Sum: Prov Provider Date of admission: 11/29/24 12:39 Primary care physician: David Gamino Admitting clinician: Tomasz Green MD Consults: 11/29/24 Consult to Physician Routine Comment: Called exchange and notified them of consult Consulting Provider: Amos Mckenzie black oxide coating equipment tender/MD group to consult: cardiology Reason for consultation: syncopr,Vtac Has provider been notified: Yes Consult to Physician Routine Comment: Spoke with and notified him of consult Consulting Provider: Hieu Roca black oxide coating equipment tender/ group to consult: Orthopedics Reason for consultation: R ankle fracture Has provider been notified: Yes Transfer Discharge Sum: Med Medications Active and Home Medications: Home Medications apixaban 5 mg tablet (Eliquis) 5 mg PO Q12H afib 11/28/24 [History Confirmed 11/28/24] bumetanide 1 mg tablet 2 mg PO QAM CHF 11/28/24 [History Confirmed 11/28/24] bumetanide 2 mg tablet 2 mg PO QAM 11/28/24 [History Confirmed 11/28/24] digoxin 125 mcg (0.125 mg) tablet 125 mcg PO QAM CHF 11/28/24 [History Confirmed 11/28/24] ezetimibe 10 mg tablet 10 mg PO QHS hypercholesterolemia 11/28/24 [History Confirmed 11/28/24] glipizide 5 mg tablet 5 mg PO BID diabetes type 2 11/28/24 [History Confirmed 11/28/24] metformin 500 mg tablet 1,000 mg PO BID diabetes type 2 11/28/24 [History Confirmed 11/28/24] nebivolol 10 mg tablet 10 mg PO QAM 11/28/24 [History Confirmed 11/28/24] sacubitril 24 mg-valsartan 26 mg tablet (Entresto) 0.5 tablet PO BID chf 11/28/24 [History Confirmed 11/28/24] simvastatin 20 mg tablet 20 mg PO QHS 11/28/24 [History Confirmed 11/28/24] Active Medications Acetaminophen (Acetaminophen 325 Mg Tablet) 650 mg PO Q4H PRN PRN Reason: Mild Pain (1-3) or Fever Hydrocodone Bitart/Acetaminophen (Hydrocodone/Acetaminophen (*Crx) 5-325 Mg Tablet) 1 tab PO Q4H PRN PRN Reason: Pain Rated 4-6 Apixaban (Apixaban 5 Mg Tablet) 5 mg PO Q12HR [facility] Last Admin: 12/01/24 09:05 Dose: 5 mg Bumetanide (Bumetanide 1 Mg Tablet) 2 mg PO QAM [facility] Last Admin: 12/01/24 09:04 Dose: 2 mg Ezetimibe (Ezetimibe 10 Mg Tablet) 10 mg PO QHS [facility] Last Admin: 11/30/24 20:42 Dose: 10 mg Sodium Chloride (Normal Saline Iv) 1,000 mls @ 75 mls/hr IV CONT .[id number] [facility] Last Admin: 11/30/24 23:12 Dose: 75 mls/hr Amiodarone HCl/Dextrose (Nexterone 360 Mg/D5w 200 Ml) 360 mg in 200 mls @ 16.667 mls/hr IV CONT .Q12H [facility] Morphine Sulfate (Morphine Sulfate (*Crx) 2 Mg/Ml Inj) 2 mg IV PUSH Q2H PRN PRN Reason: Pain Rated 7-10 Nebivolol (Nebivolol Hcl 5 Mg Tablet) 10 mg PO QAM [facility] Last Admin: 12/01/24 09:04 Dose: 10 mg Sacubitril/Valsartan (Sacubitril/Valsartan 12-13 Mg Tablet) 1 tab PO Q12HR [facility] Last Admin: 12/01/24 09:05 Dose: 1 tab Simvastatin (Simvastatin 20 Mg Tablet) 20 mg PO QHS [facility] Last Admin: 11/30/24 20:42 Dose: 20 mg Transfer Discharge Sum: Hosp Hospital Course Hospital course: Angela Sawyer is a 78 year old female Time Spent with Patient Time attestation: Total time spent providing and/or coordinating transfer services: DS: Data Data Completed and Pending Labs on day of discharge: Labs from last 24 hours 12/01/24 12/01/24 12/01/24 15:42 11:27 07:25 WBC RBC Hgb Hct MCV MCH MCHC RDW Plt Count MPV Sodium Potassium Chloride Carbon Dioxide Anion Gap BUN Creatinine Estim Creat Clear Calc Estimated GFR Glucose POC Capillary Glucose 180 H 184 H 152 H Calcium Magnesium 12/01/24 11/30/24 04:21 20:39 WBC 7.3 RBC 3.35 L Hgb 9.8 L Hct 29.5 L MCV 88.1 MCH 29.3 MCHC 33.2 RDW 13.7 Plt Count 221 MPV 10.0 Sodium 137 Potassium 3.4 Chloride 106 Carbon Dioxide 24 Anion Gap 7 BUN 16 Creatinine 0.88 Estim Creat Clear Calc 43 Estimated GFR > 60 Glucose 142 H POC Capillary Glucose 194 H Calcium 8.2 L Magnesium 1.7
[2024-12-01] MEDS: EZETIMIBE 10 MG TABLET PO (20:03)
[2024-12-01] MEDS: SIMVASTATIN 20 MG TABLET PO (20:04)
[2024-12-01 20:16] LABS: Glucose Point of Care 182 mg/dl (65-105)
[2024-12-01] MEDS: AMIODARONE 360 MG/D5W 200 ML 360 MG/200 ML BAG 16.67 MG IV CONT (20:56)
== END 2024-12-01 21:12 | disposition short-term general hospital (02) | DRG 309 ==
LOC: ANHED 16:30 → ANH3MED 17:17 → ANHIMU 21:57
PROVIDERS: Nurse Practitioner Gerontology; Specialist; Admitting Provider Internal Medicine; Emergency Provider Family Medicine; Visit Provider Internal Medicine
DX: I47.20 Ventricular tachycardia, unspecified (principal); I50.22 Chronic systolic (congestive) heart failure; S82.841A Displaced bimalleolar fracture of right lower leg, initial encounter for closed fracture; R55 Syncope and collapse; E86.0 Dehydration; I11.0 Hypertensive heart disease with heart failure; I48.0 Paroxysmal atrial fibrillation; E78.5 Hyperlipidemia, unspecified; W19.XXXA Unspecified fall, initial encounter; Z95.0 Presence of cardiac pacemaker
CPT/HCPCS: 36415; 70450; 71046; 73610; 80048; 80053; 82310; 82948; 83735; 84100; 84484; 85025; 85027; 85610; 93005; 96361; 96374; 99285; A9270; C8929; G0378; J0282; J3475; J7030; Q9957